=== PATIENT | female | born 1965 | race Caucasian/White ===

== ENCOUNTER → 2016-11-04 | Outpatient (CLI) | payer OTHER ==
--- NOTE | 2016-11-04 13:42 | US ---
EXAMINATION TYPE: US pelvis complete transvag DATE OF EXAM: 11/04/2016 1:13 PM COMPARISON: No previous CLINICAL HISTORY: N95.0 Post menopausal bleeding. Post menopausal bleeding, 2, para 1, aborti on 1. TECHNIQUE: Transvaginal (TV) and Transabdominal (TA) Date of LMP: 2014 EXAM MEASUREMENTS: Uterus: 8.1 x 4.9 x 5.3 cm Endometrial Stripe: 1.2 cm Right Ovary: not seen Left Ovary: not seen Findings: 1. Uterus: Retroverted, heterogeneous with 4.6 x 3.7 x 3.7cm hypoechoic area 2. Endometrium: thickened at 1.2cm with 0.4cm hypoechoic area 3. Right Ovary: not seen due to overlying bowel gas 4. Left Ovary: not seen due to overlying bowel gas 5. Bilateral Adnexa: wnl 6. Posterior cul-de-sac: small amount of free fluid IMPRESSION: 1. Leiomyoma 2. Mildly thickened endometrium with small focal hypoechoic areas seen which may reflect hemorrhagic content. Small polyp is difficult to exclude.
== END | disposition home or self-care (01) ==
LOC: RADUSWWP 12:47
PROVIDERS: ATTEND Family Medicine
DX: D25.9 Leiomyoma of uterus, unspecified (principal); R93.8 Abnormal findings on diagnostic imaging of other specified body structures
CPT/HCPCS: 76830; 76856

== ENCOUNTER 2016-11-25 10:24 | Day surgery (SDC) | payer OTHER ==
[2016-11-20 16:02] VITALS: BMI 32.2
[~2016-11-25 10:24] MED LIST: LACTATED RINGERS 1,000 ML IV SCH; LIDOCAINE 1% 20 ML VIAL (10MG/ML) FOR IV START INTRADERMA PRN
[2016-11-25 11:35] VITALS: RESP 16; TEMP 98.1
[2016-11-25] MEDS ORDERED: LIDOCAINE 1% INJ 10MG/ML (20 ML MDV) ONE (11:59)
[2016-11-25] MEDS ORDERED: PROPOFOL 10 MG/ML 20 ML VIAL IV ONE (11:59)
--- NOTE | 2016-11-25 12:21 | P.PCN ---
Date of Procedure: 11/25/16 Procedure(s) Performed: Brief history: Patient is a pleasant 51-year-old white female, scheduled for an elective upper endoscopy as well as colonoscopy as a part of evaluation of abdominal pain, abdominal bloating and change in bowel habits for the last few months duration. Procedure performed: Esophagogastroduodenoscopy with biopsy Colonoscopy with biopsy Preoperative diagnosis: Abdominal pain, abdominal bloating Change in bowel habits Anesthesia: MAC Procedure: After informed consent was obtained from the patient was brought into the endoscopy unit and IV conscious sedation was administered by anesthesia under continuous monitoring. Initially upper endoscopy was done. The Olympus GF 160 video endoscope was inserted inserted into the mouth and esophagus intubated without any difficulty and was gradually advanced into the stomach and duodenum and carefully examined. The bulb and second part of the duodenum appeared normal. Labs were done from the duodenum to rule out celiac disease. The scope was then withdrawn into the stomach adequately insufflated with air and upon careful examination the antrum had mild gastritis and biopsies were also done from this area. The body, cardia and fundus appeared normal. The scope was then withdrawn into the esophagus. The GE junction was located at 37 cm to the incisors. It appeared regbut there were 2 superficial erosions consistent with LA grade B reflux esophagitis.Rest of the esophagus appeared normal. Patient tolerated the procedure well. At this time the patient continued to remain sedation. Initial digital rectal examination was normal. Olympus CF 160 video colonoscope was then inserted into the rectum and gradually advanced to the cecum without any difficulty. Careful examination was performed as the scope was gradually being withdrawn. The prep was excellent. The cecum, ascending colon, transverse colon, descending colon, sigmoid colon and rectum appeared normal. random biopsies were done from ascending and descending colon to rule out microscopic/ collagenous Colitis. Retroflexion was performed in the rectum and no lesions were noted. Patient tolerated the procedure well. Impression: 1. Upper endoscopy revealed mild antral gastritis and LA grade B reflux esophagitis. 2. Colonoscopy revealed normal-appearing colon from rectum to cecum with no evidence of colitis or colorectal neoplasia. Recommendations: Findings of this examination were discussed with the patient as well as her family. She was advised to follow with the biopsy results. She will be seen in the office in 2 weeks from now.
[2016-11-25 13:08] VITALS: BP 128/74; PULSE 65
== END 2016-11-25 13:49 | disposition home or self-care (01) ==
LOC: ORWHC2ENDO 10:24
PROVIDERS: ATTEND Internal Medicine Gastroenterology
DX: K29.50 Unspecified chronic gastritis without bleeding (principal); K21.0 Gastro-esophageal reflux disease with esophagitis; F41.9 Anxiety disorder, unspecified; Z79.899 Other long term (current) drug therapy; Z88.0 Allergy status to penicillin; Z88.8 Allergy status to other drugs, medicaments and biological substances; Z91.09 Other allergy status, other than to drugs and biological substances
CPT/HCPCS: 81025; 88305; 88342; 45380; 43239; J2001; J2704; 99153

== ENCOUNTER → 2016-12-16 | Outpatient (CLI) | payer OTHER ==
--- NOTE | 2016-12-17 09:28 | MM ---
Reason for exam: screening (asymptomatic). Last mammogram was performed 1 year and 3 months ago. History: Family history of breast cancer in maternal grandmother at age 60. Reduction of the left breast, 1994. Reduction of the right breast, 1994. Took hormonal contraceptives for 8 years beginning at age 31. Physical Findings: A clinical breast exam by your physician is recommended on an annual basis and results should be correlated with mammographic findings. MG Screening Mammo w CAD Bilateral CC and MLO view(s) were taken. Prior study comparison: September 09, 2015, bilateral MG screening mammo w CAD. February 23, 2013, CAD bilateral diagnostic mammogram. There are scattered fibroglandular densities. Finding: There are typically benign round calcifications in the right breast. There is no discrete abnormality. ASSESSMENT: Benign, BI-RAD 2 RECOMMENDATION: Routine screening mammogram of both breasts in 1 year.
== END ==
LOC: RADMAMWWP 10:01
PROVIDERS: ATTEND Family Medicine
DX: Z12.31 Encounter for screening mammogram for malignant neoplasm of breast (principal)

== ENCOUNTER → 2016-12-30 | Outpatient (CLI) | payer OTHER ==
--- NOTE | 2016-12-30 14:47 | CT ---
EXAMINATION TYPE: CT chest wo con DATE OF EXAM: 12/30/2016 2:26 PM COMPARISON: Chest CT February 23, 2013. HISTORY: ILD/Sarcoidosis. Shortness of breath and pain per patient. Raynaud phenomenon without gangre ne per order. CT DLP: 396.8 mGycm. Automated Exposure Control for Dose Reduction was Utilized. TECHNIQUE: CT scan of the thorax is performed without IV contrast. FINDINGS: LUNGS: The lungs are grossly clear, there is no concerning parenchymal mass or nodule identified. No suspicious groundglass opacity consolidation is seen. No significant reticulation or fibrosis is magalys ntified. There is no pleural effusion or pneumothorax seen. The tracheobronchial tree is patent. MEDIASTINUM: Lack of IV contrast is noted to limit evaluation for mediastinal and especially hilar ad enopathy. There are no definitive greater than 1 cm hilar or mediastinal lymph nodes. No cardiomega ly or pericardial effusion is seen. OTHER: Some mild multilevel spurring in the mid to lower thoracic spine is present. Visualized spleen is prominent but not completely imaged. IMPRESSION: No significant acute or chronic pulmonary process.
== END | disposition home or self-care (01) ==
LOC: RADCTMAIN 13:45
PROVIDERS: ATTEND Internal Medicine Rheumatology
DX: I73.00 Raynaud's syndrome without gangrene (principal)
CPT/HCPCS: 71250

== ENCOUNTER → 2017-08-31 | Outpatient (CLI) | payer OTHER ==
--- NOTE | 2017-08-31 23:57 | MR ---
EXAMINATION TYPE: MR lumbar spine wo con DATE OF EXAM: 08/31/2017 COMPARISON: 08/28/2016 HISTORY: Back pain TECHNIQUE: Multiplanar, multisequence images of the lumbar spine were acquired. Lumbar vertebra have normal alignment. There is slight narrowing and decreased signal in the disks at L4-5 and L5-S1. This posterior concentric mild disc herniation at L4-5. There are small posterior di sc bulge at L5-S1. There is no spinal stenosis. Lumbar nerve roots appear normal. The neural foramina are fairly well-maintained. There is no compression fracture. There is no paraspinal mass. Posterior elements are intact. IMPRESSION: Mild spondylosis in the lower lumbar spine. Small posterior disc bulging and herniation at L4-5 and L 5-S1 without significant change compared to old exam. No spinal stenosis. No fracture.
== END | disposition home or self-care (01) ==
LOC: RADMRIMAIN 14:38
PROVIDERS: ATTEND Family Medicine
DX: M51.26 Other intervertebral disc displacement, lumbar region (principal); M51.27 Other intervertebral disc displacement, lumbosacral region; M47.816 Spondylosis without myelopathy or radiculopathy, lumbar region
CPT/HCPCS: 72148

== ENCOUNTER → 2017-09-01 | Outpatient (CLI) | payer SELFPAY | END | disposition home or self-care (01) | LOC: LABWHC1 09:53 | PROVIDERS: ATTEND Orthopaedic Surgery | DX: R78.79 Finding of abnormal level of heavy metals in blood (principal) | CPT/HCPCS: 36415 ==

== ENCOUNTER → 2017-10-05 | Outpatient (CLI) | payer SELFPAY | END | disposition home or self-care (01) | LOC: LABWHC1 10:34 | PROVIDERS: ATTEND Orthopaedic Surgery | DX: L23.0 Allergic contact dermatitis due to metals (principal); R78.79 Finding of abnormal level of heavy metals in blood | CPT/HCPCS: 36415 ==

== ENCOUNTER → 2018-05-16 | Outpatient (CLI) | payer SELFPAY | END | disposition home or self-care (01) | LOC: LABWHC1 13:35 | PROVIDERS: ATTEND Orthopaedic Surgery | DX: M25.561 Pain in right knee (principal) | CPT/HCPCS: 36415; 85652; 86140 ==

== ENCOUNTER → 2018-05-17 | Outpatient (CLI) | payer OTHER | END | disposition home or self-care (01) | LOC: LABWHC1 10:33 | PROVIDERS: ATTEND Internal Medicine | DX: D83.9 Common variable immunodeficiency, unspecified (principal) | CPT/HCPCS: 36415; 82784 ==

== ENCOUNTER → 2018-06-08 | Outpatient (CLI) | payer OTHER ==
--- NOTE | 2018-06-09 08:52 | MM ---
Reason for exam: screening (asymptomatic). Last mammogram was performed 1 year and 6 months ago. History: Family history of breast cancer in maternal grandmother at age 60. Reduction of the left breast, 1994. Reduction of the right breast, 1994. Took hormonal contraceptives for 8 years beginning at age 31. Physical Findings: A clinical breast exam by your physician is recommended on an annual basis and results should be correlated with mammographic findings. MG Screening Mammo w CAD Bilateral CC and MLO view(s) were taken. Prior study comparison: December 16, 2016, bilateral MG screening mammo w CAD. September 09, 2015, bilateral MG screening mammo w CAD. There are scattered fibroglandular densities. There is no discrete abnormality. No significant changes when compared with prior studies. ASSESSMENT: Negative, BI-RAD 1 RECOMMENDATION: Routine screening mammogram of both breasts in 1 year.
== END | disposition home or self-care (01) ==
LOC: RADMAMWWP 09:18
PROVIDERS: ATTEND Obstetrics & Gynecology
DX: Z12.31 Encounter for screening mammogram for malignant neoplasm of breast (principal)
CPT/HCPCS: 77067

== ENCOUNTER → 2018-07-05 | Outpatient (CLI) | payer OTHER ==
--- NOTE | 2018-07-05 16:26 | CT ---
EXAMINATION TYPE: CT sinus wo con DATE OF EXAM: 07/05/2018 COMPARISON: CT facial bones January 29, 2011 HISTORY: Common variable immunodeficiency, unspecified CT DLP: 512 mGycm. Automated Exposure Control for Dose Reduction was Utilized. TECHNIQUE: CT scan of the sinuses is performed without contrast, axial images are obtained, coronal r eformatted images are also reviewed. FINDINGS: The paranasal sinuses including the frontal, ethmoid, sphenoid, and maxillary sinuses bila terally are well-aerated without abnormal opacification. The surgically treated ostiomeatal complex is patent bilaterally on the coronal images. Visualized portion of mastoid air cells show no abnormal opacification. The globes are intact bilate rally. Visualized portion of brain parenchyma shows mild diffuse age-related cerebral atrophy. IMPRESSION: The paranasal sinuses are clear and the surgically treated ostiomeatal complex is patent bilaterally. No significant change from 2011 CT.
== END | disposition home or self-care (01) ==
LOC: RADCTMAIN 15:57
PROVIDERS: ATTEND Internal Medicine
DX: J34.89 Other specified disorders of nose and nasal sinuses (principal); Z98.890 Other specified postprocedural states
CPT/HCPCS: 70486

== ENCOUNTER → 2018-09-05 | Outpatient (CLI) | payer OTHER ==
--- NOTE | 2018-09-05 23:32 | MR ---
EXAMINATION TYPE: MR knee LT wo/w con DATE OF EXAM: 09/05/2018 COMPARISON: 09/09/2012 HISTORY: Knee pain TECHNIQUE: Multiplanar, multisequence images of the left knee is performed with 7.5 mL intravenous ga dolinium contrast. FINDINGS: There is a knee joint effusion. There is previous reconstructive surgery of the anterior cruciate lig ament that appears intact. There are linear defects in the distal femur and the proximal tibia. The l ateral meniscus appears intact. There is mild thinning of the medial meniscus. The collateral ligamen ts appear intact. I see no focal bone destruction. The infrapatellar tendon appears intact. The supra patellar tendon shows areas of increased signal. I see no pathologic enhancement. There is no evidenc e of a fracture. IMPRESSION: Previous ACL reconstructive surgery unchanged. Increased signal in the suprapatellar tendon adjacent to the patella consistent with partial tears that is a change compared to last exam. No evidence of meniscal tear. Minor degenerative thinning of the medial meniscus.
== END | disposition home or self-care (01) ==
LOC: RADMRIMAIN 17:01
PROVIDERS: ATTEND Family Medicine
DX: R93.7 Abnormal findings on diagnostic imaging of other parts of musculoskeletal system (principal); M25.562 Pain in left knee; Z98.890 Other specified postprocedural states
CPT/HCPCS: 73723; A9585

== ENCOUNTER → 2018-09-05 | Outpatient (CLI) | payer OTHER ==
[2018-09-05 08:45] LABS: Basophils # (A) 0.1 k/uL (0-0.2); Basophils % (A) 1 %; Eosinophils # (A) 0.3 k/uL (0-0.7); Eosinophils % (A) 5 %; HCT 42.9 % (34.0-46.0); HGB 14.8 gm/dL (11.4-16.0); Lymphocytes # (A) 2.3 k/uL (1.0-4.8); Lymphocytes % (A) 43 %; MCH 28.6 pg (25.0-35.0); MCHC 34.6 g/dL (31.0-37.0); MCV 82.6 fL (80.0-100.0); Mean Platelet Volume 6.4; Monocytes # (A) 0.3 k/uL (0-1.0); Monocytes % (A) 5 %; Neutrophils # (A) 2.3 k/uL (1.3-7.7); Neutrophils % (A) 44 %; Platelet Count 240 k/uL (150-450); RBC 5.19 m/uL (3.80-5.40); RDW 13.7 % (11.5-15.5); WBC 5.3 k/uL (3.8-10.6)
[2018-09-05 12:59] LABS: Anion Gap 7 mmol/L; Blood Urea Nitrogen 12 mg/dL (7-17); Calcium 9.7 mg/dL (8.4-10.2); Carbon Dioxide 28 mmol/L (22-30); Chloride 106 mmol/L (98-107); Cholesterol 202 mg/dL (<200); Glucose 107 mg/dL (74-99); HDL Cholesterol 40 mg/dL (40-60); LDL Cholesterol,Calculated 138 mg/dL (0-99); Potassium 4.6 mmol/L (3.5-5.1); Sodium 141 mmol/L (137-145); Triglycerides 119 mg/dL (<150)
== END ==
LOC: LABWHC1 08:13
PROVIDERS: ATTEND Family Medicine
DX: Z00.00 Encounter for general adult medical examination without abnormal findings (principal)
CPT/HCPCS: 36415; 80048; 80061; 85025

== ENCOUNTER → 2018-11-15 | Outpatient (CLI) | payer OTHER | END | disposition home or self-care (01) | LOC: LABWHC1 14:20 | PROVIDERS: ATTEND Internal Medicine | DX: D53.9 Nutritional anemia, unspecified (principal) | CPT/HCPCS: 36415; 82784 ==

== ENCOUNTER → 2019-11-01 | Outpatient (CLI) | payer OTHER ==
--- NOTE | 2019-11-01 09:42 | US ---
EXAMINATION TYPE: US gallbladder DATE OF EXAM: 11/01/2019 COMPARISON: 09/18/2016 CLINICAL HISTORY: R10.11 RUQ PAIN. RUQ pain ongoing for years EXAM MEASUREMENTS: Liver Length: 17.0cm Gallbladder Wall: 0.2cm CBD: 0.3cm Right Kidney: 9.5 x 4.7 x 4.9cm difficult to image due to habitus and bowel gas Pancreas: wnl Liver: difficult to penetrate and coarse Gallbladder: wnl Evidence for sonographic Stevens's sign: no CBD: wnl Right Kidney: wnl IMPRESSION: 1. Liver is somewhat coarsened in echo pattern which can be seen with hepatic steatosis, hepatocellul ar disease or hepatitis. Correlate clinically.
== END | disposition home or self-care (01) ==
LOC: RADUSWWP 08:46
PROVIDERS: ATTEND Internal Medicine Gastroenterology
DX: R93.2 Abnormal findings on diagnostic imaging of liver and biliary tract (principal); R10.11 Right upper quadrant pain
CPT/HCPCS: 76705

== ENCOUNTER 2020-01-08 15:46 | Emergency (ER) | payer OTHER ==
[2020-01-08 15:57] VITALS: RESP 18
--- NOTE | 2020-01-08 16:25 | XR ---
EXAMINATION TYPE: XR chest 2V DATE OF EXAM: 01/08/2020 COMPARISON: 11/19/2010 INDICATION: Cough asthma TECHNIQUE: Frontal and lateral views of the chest are obtained. FINDINGS: The heart size is normal. The pulmonary vasculature is normal. The lungs are clear. IMPRESSION: 1. No acute pulmonary process.
--- NOTE | 2020-01-08 16:41 | ED ---
General Adult HPI - General Chief complaint: Upper Respiratory Infection Stated complaint: Shortness of Breath Time Seen by Provider: 01/08/20 16:00 Source: patient Mode of arrival: ambulatory Limitations: no limitations - History of Present Illness Initial comments: Patient is a 54-year-old female with history of common periorbital variable immunodeficiency syndrome presenting to the emergency department with a chief complaint of cough and shortness of breath. States the symptoms have been ongoing for about since Wednesday. Patient reports a dry cough but denies any upper respiratory symptoms. All reports an occasional sore throat after coughi ng fits. Patient states she spoke with her complaint specialist who started the patient on a tapered steroid pack. Patient states she is also been using nebulizer treatments at home which helped improve the wheezing. Patient denies any fevers. Denies taking any medication to alleviate the symptoms. Denies chest pain back pain abdominal pain nausea vomiting diarrhea, headaches, blurry vision, one-sided weakness or paresthesias. - Related Data Home Medications Medication Instructions Recorded Confirmed Clindamycin [Cleocin] 150 mg PO TID 11/20/16 11/25/16 LORazepam [Ativan] 0.5 - 1 mg PO BID PRN 11/20/16 11/25/16 Liraglutide [Saxenda] 1.8 mg SQ DAILY 11/20/16 11/25/16 Metoprolol Succinate [Toprol XL] 50 mg PO HS 11/20/16 11/25/16 Omeprazole 40 mg PO DAILY 11/20/16 11/25/16 Allergies Allergy/AdvReac Type Severity Reaction Status Date / Time erythromycin base Allergy Rash/Hives Verified 01/08/20 15:48 gabapentin [From Neurontin] Allergy BLURRED Verified 01/08/20 15:48 VISION hyoscyamine [From Levbid] Allergy BLURRED Verified 01/08/20 15:48 VISION immune globulin,gamma (IgG) Allergy Anaphylaxis Verified 01/08/20 15:48 human [From Carimune] paroxetine [From Paxil] Allergy Confusion Verified 01/08/20 15:48 Penicillins Allergy Rash/Hives Verified 01/08/20 15:48 pregabalin [From Lyrica] Allergy BLURRED Verified 01/08/20 15:48 VISION sumatriptan [From Imitrex] Allergy SEVERE Verified 01/08/20 15:48 PRESSURE IN HEAD, BURNING PAIN vancomycin Allergy Rash/Hives Verified 01/08/20 15:48 Review of Systems ROS Statement: Those systems with pertinent positive or pertinent negative responses have been documented in the HPI. ROS Other: All systems not noted in ROS Statement are negative. 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 Date of last positivie culture/infection: 2010 MDRO Source:: sinus Past Surgical History: No Surgical Hx Reported, Breast Surgery, Joint Replacement, Orthopedic Surgery Additional Past Surgical History / Comment(s): abdominlaplasty, R knee L ACL, L shoulder Past Psychological History: Anxiety, PTSD Smoking Status: Never smoker Past Alcohol Use History: Rare Past Drug Use History: None Reported General Exam Limitations: no limitations General appearance: alert, in no apparent distress Head exam: Present: atraumatic, normocephalic, normal inspection Eye exam: Present: normal appearance, PERRL, EOMI Pupils: Present: normal accommodation ENT exam: Present: normal exam, mucous membranes moist Neck exam: Present: normal inspection, full ROM Respiratory exam: Present: normal lung sounds bilaterally. Absent: respiratory distress, wheezes, rales, rhonchi, stridor Cardiovascular Exam: Present: regular rate, normal rhythm, normal heart sounds Extremities exam: Present: normal inspection, normal capillary refill Back exam: Present: normal inspection, full ROM Neurological exam: Present: alert, oriented X3 Psychiatric exam: Present: normal affect, normal mood Skin exam: Present: warm, dry, intact, normal color Course Vital Signs 01/08/20 01/08/20 15:49 18:05 Temperature 98.2 F Pulse Rate 104 H 88 Respiratory 18 18 Rate Blood Pressure 161/82 119/74 O2 Sat by Pulse 99 97 Oximetry Medical Decision Making - Medical Decision Making Patient is a 54-year-old female presenting to the emergency department with chief complaint of shortness of breath and cough. Physical examination reveals no respiratory distress. No wheezing or rhonchi appreciated. Patient does appear to be slightly clammy. Chest x-ray is unremarkable. CBC CMP are unremarkable. Blood cultures pending. Lactic is 2.1 initially. Patient did report decreased liquid intake since yesterday. Patient was given 1 L bolus fluids. Reevaluation patient reports feeling symptomatically better. Repeat lactate is 2.1. I suspect this was only elevated due to poor liquid intake. Had a lengthy discussion with patient regarding limited Covid testing due to shortage. Only admitted patients are tested. Patient advised to follow-up with her primary care. Return parameters were thoroughly discussed with patient who was understanding and agreeable. Case discussed with physician. - Lab Data Result diagrams: 01/08/20 16:15 01/08/20 16:15 Lab Results 01/08/20 01/08/20 01/08/20 Range/Units 16:15 16:15 16:15 WBC 8.3 (3.8-10.6) k/uL RBC 5.69 H (3.80-5.40) m/uL Hgb 15.6 (11.4-16.0) gm/dL Hct 45.8 (34.0-46.0) % MCV 80.5 (80.0-100.0) fL MCH 27.4 (25.0-35.0) pg MCHC 34.0 (31.0-37.0) g/dL RDW 13.7 (11.5-15.5) % Plt Count 345 (150-450) k/uL Neutrophils % 82 % Lymphocytes % 15 % Monocytes % 2 % Eosinophils % 0 % Basophils % 0 % Neutrophils # 6.8 (1.3-7.7) k/uL Lymphocytes # 1.2 (1.0-4.8) k/uL Monocytes # 0.2 (0-1.0) k/uL Eosinophils # 0.0 (0-0.7) k/uL Basophils # 0.0 (0-0.2) k/uL Sodium 138 (137-145) mmol/L Potassium 4.2 (3.5-5.1) mmol/L Chloride 103 (98-107) mmol/L Carbon Dioxide 23 (22-30) mmol/L Anion Gap 12 mmol/L BUN 11 (7-17) mg/dL Creatinine 0.74 (0.52-1.04) mg/dL Est GFR (CKD-EPI)AfAm >90 (>60 ml/min/1.73 sqM) Est GFR (CKD-EPI)NonAf >90 (>60 ml/min/1.73 sqM) Glucose 139 H (74-99) mg/dL Plasma Lactic Acid Felipe 3.1 H* (0.7-2.0) mmol/L Calcium 10.0 (8.4-10.2) mg/dL Total Bilirubin 0.4 (0.2-1.3) mg/dL AST 18 (14-36) U/L ALT 17 (4-34) U/L Alkaline Phosphatase 92 (38-126) U/L Total Protein 7.7 (6.3-8.2) g/dL Albumin 4.8 (3.5-5.0) g/dL 01/07/ Range/Units 19:15 WBC (3.8-10.6) k/uL RBC (3.80-5.40) m/uL Hgb (11.4-16.0) gm/dL Hct (34.0-46.0) % MCV (80.0-100.0) fL MCH (25.0-35.0) pg MCHC (31.0-37.0) g/dL RDW (11.5-15.5) % Plt Count (150-450) k/uL Neutrophils % % Lymphocytes % % Monocytes % % Eosinophils % % Basophils % % Neutrophils # (1.3-7.7) k/uL Lymphocytes # (1.0-4.8) k/uL Monocytes # (0-1.0) k/uL Eosinophils # (0-0.7) k/uL Basophils # (0-0.2) k/uL Sodium (137-145) mmol/L Potassium (3.5-5.1) mmol/L Chloride (98-107) mmol/L Carbon Dioxide (22-30) mmol/L Anion Gap mmol/L BUN (7-17) mg/dL Creatinine (0.52-1.04) mg/dL Est GFR (CKD-EPI)AfAm (>60 ml/min/1.73 sqM) Est GFR (CKD-EPI)NonAf (>60 ml/min/1.73 sqM) Glucose (74-99) mg/dL Plasma Lactic Acid Felipe 2.1 H* (0.7-2.0) mmol/L Calcium (8.4-10.2) mg/dL Total Bilirubin (0.2-1.3) mg/dL AST (14-36) U/L ALT (4-34) U/L Alkaline Phosphatase (38-126) U/L Total Protein (6.3-8.2) g/dL Albumin (3.5-5.0) g/dL Disposition Clinical Impression: Cough, Bronchitis Disposition: HOME SELF-CARE Condition: Stable Instructions (If sedation given, give patient instructions): Acute Bronchitis (ED) Additional Instructions: Follow up with primary care. return to emergency department if symptoms worsen. Is patient prescribed a controlled substance at d/c from ED?: No Referrals: Oc Wright DO [Primary Care Provider] - 1-2 days Time of Disposition: 20:02
[2020-01-08 17:12] LABS: Basophils % (A) 0 %; Eosinophils % (A) 0 %; HCT 45.8 % (34.0-46.0); HGB 15.6 gm/dL (11.4-16.0); Lymphocytes # (A) 1.2 k/uL (1.0-4.8); Lymphocytes % (A) 15 %; MCH 27.4 pg (25.0-35.0); MCV 80.5 fL (80.0-100.0); Mean Platelet Volume 6.7; Monocytes # (A) 0.2 k/uL (0-1.0); Monocytes % (A) 2 %; Neutrophils # (A) 6.8 k/uL (1.3-7.7); Neutrophils % (A) 82 %; Platelet Count 345 k/uL (150-450); RBC 5.69 m/uL (3.80-5.40); RDW 13.7 % (11.5-15.5); WBC 8.3 k/uL (3.8-10.6)
[2020-01-08 17:20] LABS: ALT 17 U/L (4-34); AST 18 U/L (14-36); African American GFR (CKD) >90 (>60 ml/min/1.73 sqM); Albumin 4.8 g/dL (3.5-5.0); Alkaline Phosphatase 92 U/L (38-126); Anion Gap 12 mmol/L; Blood Urea Nitrogen 11 mg/dL (7-17); Carbon Dioxide 23 mmol/L (22-30); Chloride 103 mmol/L (98-107); Glucose 139 mg/dL (74-99); Non-African American GFR(CKD) >90 (>60 ml/min/1.73 sqM); Potassium 4.2 mmol/L (3.5-5.1); Sodium 138 mmol/L (137-145); Total Bilirubin 0.4 mg/dL (0.2-1.3); Total Protein 7.7 g/dL (6.3-8.2)
[2020-01-08] MEDS ORDERED: SODIUM CHLORIDE 0.9% 1,000 ML IV STA (17:50)
[2020-01-08 20:27] VITALS: BP 132/86; PULSE 72; TEMP 97.8
== END 2020-01-08 20:26 | disposition home or self-care (01) ==
LOC: EC 15:46
DX: J40 Bronchitis, not specified as acute or chronic (principal); M19.90 Unspecified osteoarthritis, unspecified site; D83.9 Common variable immunodeficiency, unspecified; Z88.0 Allergy status to penicillin; Z88.8 Allergy status to other drugs, medicaments and biological substances; Z88.7 Allergy status to serum and vaccine; Z79.84 Long term (current) use of oral hypoglycemic drugs; Z79.899 Other long term (current) drug therapy; Z86.14 Personal history of Methicillin resistant Staphylococcus aureus infection; Z87.19 Personal history of other diseases of the digestive system; Z96.60 Presence of unspecified orthopedic joint implant
CPT/HCPCS: 36415; 71046; 80053; 83605; 85025; 87040; 87077; 87186; 96360; 99285

== ENCOUNTER → 2020-06-05 | Outpatient (CLI) | payer OTHER ==
[2020-06-05 07:56] VITALS: BP 159/92; PULSE 66; RESP 18; TEMP 98.2
--- NOTE | 2020-06-05 12:25 | P.PAINCN ---
History of Present Illness - Reason for Consult Consult date: 06/05/20 - History of Present Illness This is 54 years old female, who is complaining of severe left thumb pain and redness, and swelling, started a few days after she had left hand surgery(surgery was done in 04/10/2020 ) the pain is constant and increased with any movement of her left thumb, she denies any discharge, she denies any fever , any movement of her left thumb associated with severe pain, she tried multiple pain medication, without any significant benefit, and she had side effects from gabapentin to Lyrica, and amitriptyline, she tried occupational therapy without any benefit Past Medical History Past Medical History: Asthma, GERD/Reflux, GI Bleed, Hypertension, Osteoarthritis (OA) Additional Past Medical History / Comment(s): common variable immune deficiency disorder, Reynaud's, RSD left thumb, IBS, inflam. colitis, medulary sponge kidney disease, small fiber neuropathy hands, feet & ankles History of Any Multi-Drug Resistant Organisms: MRSA Year Discovered:: 2010 MDRO Source:: sinus Past Surgical History: Bladder Surgery, Breast Surgery, Joint Replacement, Orthopedic Surgery Additional Past Surgical History / Comment(s): abdominoplasty, L ACL, L shoulder , CMCR arthroplasty left hand April 2020, right knee replaced, breast reduction, bladder suspension, stone removed from sublingual gland, sinus surg. Past Anesthesia/Blood Transfusion Reactions: No Reported Reaction Additional Past Anesthesia/Blood Transfusion Reaction / Comm: one time episode of trouble arousing after colonoscopy Past Psychological History: Anxiety, PTSD Smoking Status: Never smoker Past Alcohol Use History: Occasional Past Drug Use History: None Reported Medications and Allergies Home Medications Medication Instructions Recorded Confirmed Type LORazepam [Ativan] 0.5 - 1 mg PO BID PRN 11/20/16 05/30/20 History Metoprolol Succinate [Toprol XL] 50 mg PO HS 11/20/16 05/30/20 History Omeprazole 40 mg PO DAILY 11/20/16 05/30/20 History Arnica Cream TOPICAL DIRECTED PRN 05/30/20 History HYDROcodone/APAP 10-325MG [[place] 0.5 - 1 tab PO Q6HR PRN 05/30/20 05/30/20 History 10-325] Hizentra Infusion IV Q14D 05/30/20 History Immuneti 1 tab PO DAILY 05/30/20 05/30/20 History Naproxen Sodium [Aleve] 220 mg PO BID PRN 05/30/20 05/30/20 History Allergies Allergy/AdvReac Type Severity Reaction Status Date / Time adhesive Allergy blistered Verified 06/05/20 07:52 skin, rash erythromycin base Allergy Rash/Hives Verified 06/05/20 07:52 gabapentin [From Neurontin] Allergy BLURRED Verified 06/05/20 07:52 VISION hyoscyamine [From Levbid] Allergy BLURRED Verified 06/05/20 07:52 VISION immune globulin,gamma (IgG) Allergy Anaphylaxis Verified 06/05/20 07:52 human [From Carimune] paroxetine [From Paxil] Allergy Confusion Verified 06/05/20 07:52 Penicillins Allergy Rash/Hives Verified 06/05/20 07:52 pregabalin [From Lyrica] Allergy BLURRED Verified 06/05/20 07:52 VISION sumatriptan [From Imitrex] Allergy SEVERE Verified 06/05/20 07:52 PRESSURE IN HEAD, BURNING PAIN vancomycin Allergy Rash/Hives Verified 06/05/20 07:52 Physical Exam Vitals: Vital Signs Temp Pulse Resp BP 06/05/20 07:53 98.2 F 66 18 159/92 Physical Examinations : -Constitutiona : Cooperative , not in acute distress . -HEENT : nech : supple , no Lymphadenopathy , normal thyroid size . : eyes : no ptosis , no icterus, no photophobia . - neurologic : Cranial nerve II to XII intact , no focal neurological deffecit . -psychatric : alert , oriented X 3 , appropriate affect , intact judgment and insight . -Lymphatic : no Lymphadenopathy . - musculoskeltal : Upper extremity= allodynia at the dorsum aspect of the left thumb, mild swelling Passive and active movement of the left thumb associated with severe pain. Incision at the wrist, the base of the left thumb, he well with no sign of infection, no discharge Lumber spine moter stegnth lower extremities ,thigh and legs 5/5 Right side , 5/5 Left side Assessment and Plan Plan: Assessment and plan=1-complex regional pain syndrome type I left upper extremity . We will order bone scan. Patient could benefit from Trileptal 300 mg daily at bedtime increased later on for twice a day. Patient could benefit from amitriptyline 10 mg daily at bedtime. Patient will follow up in the pain clinic in 2 weeks, by that time we will have the result of the bone scan and we could schedule patient to have left-sided stellate ganglion block, and patient should continue occupational therapy, physical therapy Time with Patient: Greater than 30 PQRS Measure Charge Sheet Measure #130: Documentation of Current Meds in Medical Chart: Patient's medications documented in chart Measure #226: Tobacco Use: Screen & Cessation Intervention: Pt not a tobacco user Measure #111: Pneumonia Vaccination: Pneumococcal vaccine NOT administered or previously given Measure #47: Advance Care Plan: Advance care planning discussed & documented, pt chose/unable to give Measure #412: Opioid Treatment Agreement: No documentation of signed opioid treatment agreement Measure #408: Opioid Therapy Follow-up Evaluation: Patient had NO f/u eval minimum every 3 months during opioid therapy Measure #317: Preventitive Care & Scrn High Bld Press & F/U: Pre-hypertensive or hypertensive BP documented, pt will f/u with PCP Measure #128: Body Mass Index (BMI) Screening & Follow-up: BMI documented ABOVE normal parameters - f/u documented Measure #131: Pain Assessment & Follow-up: Pain positive & plan documented, Follow-up scheduled Measure #431: Unhealthy Alcohol Use Preventative Care & Scrn: Patient not identified as an unhealthy alcohol user PQRS Narrative: Smoking Status Never smoker Blood Pressure 159/92 Pain Intensity [Left Hand] 4 Pain Intensity [Left] 4 Scale Used Numeric (1 - 10) Hx Alcohol Use (MH) Yes Home Medications: Ambulatory Orders LORazepam [Ativan] 0.5 - 1 mg PO BID PRN 11/20/16 Metoprolol Succinate [Toprol XL] 50 mg PO HS 11/20/16 Omeprazole 40 mg PO DAILY 11/20/16 Arnica Cream TOPICAL DIRECTED PRN 05/30/20 HYDROcodone/APAP 10-325MG [[place] 10-325] 0.5 - 1 tab PO Q6HR PRN 05/30/20 Hizentra Infusion IV Q14D 05/30/20 Immuneti 1 tab PO DAILY 05/30/20 Naproxen Sodium [Aleve] 220 mg PO BID PRN 05/30/20
== END | disposition home or self-care (01) ==
LOC: PNWHC3 07:34
PROVIDERS: ATTEND Specialist
DX: G90.512 Complex regional pain syndrome I of left upper limb (principal); K21.9 Gastro-esophageal reflux disease without esophagitis; J45.909 Unspecified asthma, uncomplicated; I10 Essential (primary) hypertension; M19.90 Unspecified osteoarthritis, unspecified site; Z79.891 Long term (current) use of opiate analgesic; Z79.899 Other long term (current) drug therapy; Z88.1 Allergy status to other antibiotic agents; Z88.0 Allergy status to penicillin; Z88.8 Allergy status to other drugs, medicaments and biological substances
CPT/HCPCS: 99211

== ENCOUNTER → 2020-06-21 | Outpatient (CLI) | payer OTHER ==
--- NOTE | 2020-06-24 09:58 | MM ---
Reason for exam: screening (asymptomatic). Last mammogram was performed 2 years ago. History: Patient is postmenopausal. Family history of breast cancer in maternal grandmother at age 60. Reduction of the left breast, 1994. Reduction of the right breast, 1994. Took hormonal contraceptives for 8 years beginning at age 31. Physical Findings: A clinical breast exam by your physician is recommended on an annual basis and results should be correlated with mammographic findings. MG Screening Mammo w CAD Bilateral CC and MLO view(s) were taken. Prior study comparison: June 08, 2018, bilateral MG screening mammo w CAD. December 16, 2016, bilateral MG screening mammo w CAD. There are scattered fibroglandular densities. There is no discrete abnormality. No significant changes when compared with prior studies. ASSESSMENT: Negative, BI-RAD 1 RECOMMENDATION: Routine screening mammogram of both breasts in 1 year.
== END | disposition home or self-care (01) ==
LOC: RADMAMWWP 13:26
PROVIDERS: ATTEND Family Medicine
DX: Z12.31 Encounter for screening mammogram for malignant neoplasm of breast (principal)
CPT/HCPCS: 77067

== ENCOUNTER → 2020-06-26 | Outpatient (CLI) | payer OTHER ==
--- NOTE | 2020-06-26 14:25 | NM ---
EXAMINATION TYPE: NM bone 3 phase DATE OF EXAM: 06/26/2020 COMPARISON: NONE HISTORY: Pain Triple phase bone scintigraphy was performed following the injection of 22.5 mCi Tc 99m MDP. Immedia te images and 3 hours post injection images acquired. FINDINGS: Uptake in the vascular structures of the right arm is related to the site of injection. This limits a ssessment of the vascular supply. There appears to be increased soft tissue uptake involving the region of the scaphoid. Delayed images demonstrate increased uptake in the region of the distal radius or scaphoid bone. IMPRESSION: 1. Abnormal uptake in the region of the scaphoid or trapezium bone with soft tissue uptake.. Recommen d x-ray correlation to assess for fracture versus osteomyelitis severe arthritis or intraosseous lesi on.
== END | disposition home or self-care (01) ==
LOC: RADNMMAIN 09:55
PROVIDERS: ATTEND Specialist
DX: R94.8 Abnormal results of function studies of other organs and systems (principal); G90.529 Complex regional pain syndrome I of unspecified lower limb
CPT/HCPCS: 78315; A9503

== ENCOUNTER → 2020-07-17 | Outpatient (CLI) | payer OTHER ==
[2020-07-17 10:02] VITALS: BP 143/92; PULSE 78; RESP 18; TEMP 98.2
--- NOTE | 2020-07-17 10:29 | P.PN ---
Subjective Progress Note Date: 07/17/20 This is a follow-up visit for this 54 years old female with a history of left thumb pain, and swelling, started after left thumb arthroplasty, patient diagnosed with complex regional pain syndrome type 1, left upper extremity, patient had the bone scan , and it showed that she had increased soft tissue upt sonya in the area Patient denies any fever or night sweats she denies any discharge from the left stump area, she continued to have swelling and redness and pain with the movement of the joint (left thumb ) Objective - Vital Signs Vital signs: Vital Signs Temp 98.2 F 07/17/20 09:56 Pulse 78 07/17/20 09:56 Resp 18 07/17/20 09:56 BP 143/92 07/17/20 09:56 Pulse Ox 97 07/17/20 09:56 Intake & Output 07/16/20 07/17/20 07/17/20 18:59 06:59 18:59 Weight 88.451 kg - Exam -Constitutiona : Cooperative , not in acute distress . -HEENT : nech : supple , no Lymphadenopathy , normal thyroid size . : eyes : no ptosis , no icterus, no photophobia . - neurologic : Cranial nerve II to XII intact , no focal neurological deffecit . -psychatric : alert , oriented X 3 , appropriate affect , intact judgment and insight . -Lymphatic : no Lymphadenopathy . - musculoskeltal : Upper extremity= allodynia at the dorsum aspect of the left thumb, mild swelling Passive and active movement of the left thumb associated with severe pain. Incision at the wrist, the base of the left thumb, he well with no sign of infection, no discharge Lumber spine moter stegnth lower extremities ,thigh and legs 5/5 Right side , 5/5 Left side Assessment and Plan Plan: Assessment and plan=1-complex regional pain syndrome type I left upper extremity . Patient could benefit from stellate ganglion block left side. Description had side effects from amitriptyline, and she stopped taking Trileptal. - PQRS measures = - Patient's medications are documented in the chart. -Tobacco use is negative and counseling.Given. -Patient's has not received pneumococcal vaccine. -Advanced care planning discussed, patient not eligible. -Opiate contract signed. -Pain positive and follow-up visit/procedure is scheduled. -Patient's blood pressure measured [143/92 ] , and documented in the record ,and patient will follow up with the primary care. -Patient's weight was measured and body mass index above the normal limits and counseling was done. and patient instructed to follow-up with the primary care physician. -Patient was not identified as an unhealthy alcohol user Time with Patient: Less than 30
== END | disposition home or self-care (01) ==
LOC: PNWHC3 09:40
PROVIDERS: ATTEND Specialist
DX: G90.512 Complex regional pain syndrome I of left upper limb (principal)
CPT/HCPCS: 99211

== ENCOUNTER → 2020-07-24 | Outpatient (CLI) | payer OTHER ==
--- NOTE | 2020-07-25 04:46 | MR ---
EXAMINATION TYPE: MR knee LT wo con DATE OF EXAM: 07/24/2020 COMPARISON: 09/05/2018 HISTORY: Medial meniscus injury left knee There is deformity of the anterior cruciate ligament related to reconstructive surgery. The ligament appears intact. The posterior cruciate ligament is intact. The medial and lateral menisci show fairly normal signal pattern. There is no evidence of meniscal tear. There is a mild knee joint effusion. P atella tendon is intact. The collateral ligaments are intact. I see no bony destructive process. Ther e is no evidence of a soft tissue mass. IMPRESSION: Previous reconstructive surgery. Small knee joint effusion. Knee overall not significantly different than old exam. No evidence of meniscal tear. There is degenerative thinning of the medial meniscus unchanged compare d to old exam.
== END | disposition home or self-care (01) ==
LOC: RADMRIMAIN 18:27
PROVIDERS: ATTEND Orthopaedic Surgery
DX: M23.304 Other meniscus derangements, unspecified medial meniscus, left knee (principal); Z98.890 Other specified postprocedural states

== ENCOUNTER → 2020-07-24 | Outpatient (CLI) | payer OTHER ==
--- NOTE | 2020-07-25 04:52 | MR ---
EXAMINATION TYPE: MR foot LT wo con DATE OF EXAM: 07/24/2020 COMPARISON: None HISTORY: Lateral left foot pain Multiplanar multiecho imaging of the left foot was performed without contrast. There is increased signal in the soft tissues around the distal fifth metatarsal on the T2 images. Th ere is no evidence of a soft tissue mass. I see no bony destructive process. The metatarsals appear i ntact without evidence of a fracture. The toes appear intact. Plantar fascia appears intact. Achilles tendon appears normal. The medial and lateral flexor tendons appear intact. There is no pathologic f luid collection. IMPRESSION: Mild soft tissue edema around the distal fifth metatarsal on the dorsum of the foot of uncertain sign ificance. No fracture seen. No evidence of a discrete soft tissue mass.
== END | disposition home or self-care (01) ==
LOC: RADMRIMAIN 18:33
PROVIDERS: ATTEND Family Medicine
DX: M79.89 Other specified soft tissue disorders (principal)

== ENCOUNTER → 2020-08-09 | Outpatient (CLI) | payer OTHER ==
[2020-08-09 08:21] LABS: Basophils % (A) 1 %; Eosinophils # (A) 0.1 k/uL (0-0.7); Eosinophils % (A) 3 %; HCT 43.5 % (34.0-46.0); HGB 14.3 gm/dL (11.4-16.0); Lymphocytes # (A) 2.1 k/uL (1.0-4.8); Lymphocytes % (A) 40 %; MCH 28.2 pg (25.0-35.0); MCV 85.6 fL (80.0-100.0); Mean Platelet Volume 6.6; Monocytes # (A) 0.3 k/uL (0-1.0); Monocytes % (A) 5 %; Neutrophils # (A) 2.6 k/uL (1.3-7.7); Neutrophils % (A) 49 %; Platelet Count 264 k/uL (150-450); RBC 5.08 m/uL (3.80-5.40); RDW 13.4 % (11.5-15.5); WBC 5.2 k/uL (3.8-10.6)
[2020-08-09 11:24] LABS: African American GFR (CKD) 85.2 (60.0-200.0); Anion Gap 6.7 mmol/L (4.00-12.00); BUN/Creat Ratio 17.78 Ratio (12.00-20.00); Calcium 9.3 mg/dL (8.7-10.3); Carbon Dioxide 28.3 mmol/L (21.6-31.8); Non-African American GFR(CKD) 73.5 (60.0-200.0); Potassium 4.5 mmol/L (3.5-5.5)
[2020-08-09 11:36] LABS: Estradiol 14.4 pg/mL; Follicle Stimulating Hormone 60.6 mIU/mL; Luteinizing Hormone 29.1 mIU/mL; Prolactin 6.1 ng/mL (2.8-29.2); T4, Free (Free Thyroxine) 1.2 ng/dL (0.80-1.80)
[2020-08-09 16:11] LABS: Hemoglobin A1C 5.3 % (4.0-6.0)
== END | disposition home or self-care (01) ==
LOC: LABWHC1 07:51
PROVIDERS: ATTEND Family Medicine
DX: R53.83 Other fatigue (principal)
CPT/HCPCS: 36415; 80048; 82533; 82670; 83001; 83002; 83036; 84146; 84439; 84443; 84482; 85025

== ENCOUNTER 2020-08-20 12:08 | Day surgery (SDC) | payer OTHER ==
[2020-08-19 12:20] VITALS: BMI 34.7
[~2020-08-20 12:08] MED LIST changes: -LIDOCAINE 1% 20 ML VIAL (10MG/ML) FOR IV START INTRADERMA PRN
[2020-08-20 12:28] VITALS: TEMP 96.8
[2020-08-20] MEDS ORDERED: methylPREDNISolone ACETATE 40 MG/ML 1 ML VIAL ONE (13:01)
[2020-08-20] MEDS ORDERED: ROPIVACAINE 5MG/ML 20ML VIAL ONE (13:01)
--- NOTE | 2020-08-20 13:32 | P.PCN ---
Date of Procedure: 08/20/20 Procedure(s) Performed: Procedure= left sided stellate ganglion block under ultrasound guidance Preoperative diagnosis= 1-complex regional pain syndrome type I: Left upper extremity Postoperative diagnosis=Same as preop Diagnosis . Complication = none Condition= stable Anesthesia= local anesthetic with lidocaine 1% 3 mL Indication for the procedure= patient complaining of left hand pain and numbness and tingling she's diagnosed with complex regional pain syndrome and she is here today to have left-sided stellate ganglion block. Description of the procedure= procedure risk and benefits discussed with the patient, including but not limited, risk of infection and bleeding, and ALLERGIC reaction to the medication and not complete pain relief and patient agreed with the preceding patient taken to the operating room, placed in supine position or standard monitors applied to the patient then after induction of anesthesia back prepped with chlorhexidine 3 times , Then under strict sterile technique, local infiltration of the skin and subcutaneous tissue with lidocaine 1% 3 mL then 20-gauge PUJUNK needle advanced slowly under ultrasound guidance And placed on top of the transverse process of C7 vertebra on the left side below the longus colli muscle, then after negative aspiration ropivacaine 0.5% 9 mL mixed with 40 mg of Depo-Medrol, injected after negative aspiration, patient tolerated the procedure well without complication, patient taken to recovery room in stable condition and she will be discharged home after discharge criteria met
[2020-08-20 13:45] VITALS: BP 139/84; PULSE 70; RESP 14
== END 2020-08-20 13:50 ==
LOC: ORPAIN 12:08
PROVIDERS: ATTEND Specialist
DX: G90.512 Complex regional pain syndrome I of left upper limb (principal); Z88.8 Allergy status to other drugs, medicaments and biological substances; Z88.1 Allergy status to other antibiotic agents; Z91.09 Other allergy status, other than to drugs and biological substances
CPT/HCPCS: 64510; J1030; J2795

== ENCOUNTER → 2020-12-05 | Outpatient (CLI) | payer OTHER ==
[2020-12-06 06:07] LABS: Hepatitis B Core IgM Non-Reactive (Non-Reactive); Hepatitis B Surface AB- Quant 196.5 mIU/mL; Hepatitis B Surface Antibody Reactive (Non-Reactive); Hepatitis B Surface Antigen Non-Reactive (Non-Reactive); Hepatitis C IgG Antibody Non-Reactive (Non-Reactive)
== END | disposition home or self-care (01) ==
LOC: LABWHC1 15:56
PROVIDERS: ATTEND Specialist
DX: M06.00 Rheumatoid arthritis without rheumatoid factor, unspecified site (principal)
CPT/HCPCS: 36415; 86480; 86705; 86706; 86803; 87340

== ENCOUNTER → 2021-02-12 | Outpatient (CLI) | payer OTHER ==
--- NOTE | 2021-02-12 15:07 | CT ---
EXAMINATION TYPE: CT sinus wo con DATE OF EXAM: 02/12/2021 COMPARISON: Prior sinus CT 2018 HISTORY: Sinusitis. Hx Common variable immunodeficiency CT DLP: 446.9 mGycm. Automated Exposure Control for Dose Reduction was Utilized. TECHNIQUE: CT scan of the sinuses is performed without contrast, axial images are obtained, coronal r eformatted images are also reviewed. FINDINGS: The paranasal sinuses including the frontal, ethmoid, sphenoid, and maxillary sinuses bila terally are well-aerated without new suspicious opacification or air-fluid level. The surgically josé miguel ated ostiomeatal complex remains patent bilaterally on the coronal images. Visualized portion of mastoid air cells show no abnormal opacification. The globes are intact bilate rally. Visualized portion of brain shows mild generalized atrophy. IMPRESSION: The sinuses remain clear and the surgically treated ostiomeatal complex remains patent bi laterally.
== END | disposition home or self-care (01) ==
LOC: RADCTMAIN 14:28
PROVIDERS: ATTEND Internal Medicine
DX: J32.9 Chronic sinusitis, unspecified (principal)
CPT/HCPCS: 70486; 82784; 86769

== ENCOUNTER → 2021-07-30 | Outpatient (CLI) | payer OTHER ==
--- NOTE | 2021-07-30 13:36 | US ---
EXAMINATION TYPE: US abdomen limited DATE OF EXAM: 07/30/2021 COMPARISON: NONE CLINICAL HISTORY: R19.00 Intra-abdominal and pelvic swelling, mass. LLQ redness/palp 1.5months Complex cystic area measuring 1.1x0.6x0.7cm with surrounding edema in area of palp. IMPRESSION: Nonspecific complex cystic lesion at the site of clinical concern.
== END | disposition home or self-care (01) ==
LOC: RADUSWWP 12:14
PROVIDERS: ATTEND Family Medicine
DX: R19.00 Intra-abdominal and pelvic swelling, mass and lump, unspecified site (principal)
CPT/HCPCS: 76705

== ENCOUNTER → 2021-09-19 | Outpatient (CLI) | payer OTHER ==
[2021-09-19 15:58] LABS: VLDL Calculation 17.92 mg/dL (5.00-40.00)
[2021-09-19 16:16] LABS: Basophils # (A) 0.05 X 10*3/uL (0.00-0.10); Basophils % (A) 1.1 %; Eosinophils # (A) 0.17 X 10*3/uL (0.04-0.35); Eosinophils % (A) 3.6 %; HCT 43.1 % (37.2-46.3); Lymphocytes # (A) 1.85 X 10*3/uL (0.90-5.00); Lymphocytes % (A) 39.5 %; MCH 27.3 pg (27.0-32.0); MCHC 32.5 g/dL (32.0-37.0); MCV 84.2 fL (80.0-97.0); Mean Platelet Volume 9.4 fL (9.5-12.2); Monocytes # (A) 0.36 X 10*3/uL (0.20-1.00); Monocytes % (A) 7.7 %; Neutrophils # (A) 2.24 X 10*3/uL (1.80-7.70); Neutrophils % (A) 47.9 %; Platelet Count 268 X 10*3/uL (140-440); RBC 5.12 X 10*6/uL (4.10-5.20); RDW 13.2 % (11.5-14.5); WBC 4.68 X 10*3/uL (4.50-10.00)
[2021-09-19 23:39] LABS: Erythrocyte Sedimentation Rate 10 mm/Hr (0-30)
== END | disposition home or self-care (01) ==
LOC: LABWHC1 09:48
PROVIDERS: ATTEND Internal Medicine
DX: H35.042 Retinal micro-aneurysms, unspecified, left eye (principal); R22.2 Localized swelling, mass and lump, trunk; R53.83 Other fatigue
CPT/HCPCS: 36415; 80061; 82306; 82607; 82746; 83036; 85025; 85652; 86140

== ENCOUNTER → 2021-10-15 | Outpatient (CLI) | payer OTHER ==
--- NOTE | 2021-10-15 15:19 | US ---
EXAMINATION TYPE: US carotid duplex BILAT DATE OF EXAM: 10/15/2021 COMPARISON: NONE CLINICAL HISTORY: 55-year-old female G45.3 AMAUROSIS FUGAX. TECHNIQUE: Carotid duplex ultrasound examination. Indirect Doppler criteria is utilized. FINDINGS: EXAM MEASUREMENTS: RIGHT: Peak Systolic Velocity (PSV) cm/sec ----- Right CCA: 96.1 ----- Right ICA: 102 ----- Right ECA: 117 ICA/CCA ratio: 1.06 RIGHT: End Diastole cm/sec ----- Right CCA: 22.1 ----- Right ICA: 24.0 ----- Right ECA: 16.2 LEFT: Peak Systolic Velocity (PSV) cm/sec ----- Left CCA: 97.0 ----- Left ICA: 110 ----- Left ECA: 110 ICA/CCA ratio: 1.32 LEFT: End Diastole cm/sec ----- Left CCA: 27.0 ----- Left ICA: 37.9 ----- Left ECA: 14.3 VERTEBRALS (direction of flow): Right Vertebral: Antegrade Left Vertebral: Antegrade Rhythm: Normal Welfare Visitor notes: No elevated velocities; no evidence of significant plaque formation. IMPRESSION: No hemodynamically significant internal carotid artery stenosis on either side. Criteria for Assigning % of Stenosis / Diameter reduction (Estimation based on the indirect measurements of the internal carotid artery velocities (ICA PSV). 1. Normal (no stenosis)=ICA PSV < 125 cm/s: ratio < 2.0: ICA EDV<40 cm/s. 2. Less than 50% stenosis=ICA PSV < 125 cm/s: ratio < 2.0: ICA EDV<40 cm/s. 3. 50 to 69% stenosis=ICA PSV of 125 to 230 cm/s: ration 2.0 ? 4.0: ICA EDV 40-100 cm/s. 4. Greater than 70% stenosis to near occlusion= ICA PSV > 230 cm/s: ratio > 4.0: ICA EDV > 100 cm/s. 5. Near occlusion= ICA PSV velocities may be low or undetectable: variable ratio and ICA EDV. 6. Total occlusion=unable to detect flow.
== END | disposition home or self-care (01) ==
LOC: RADUSWWP 12:21
PROVIDERS: ATTEND Ophthalmology
DX: G45.3 Amaurosis fugax (principal)
CPT/HCPCS: 93880

== ENCOUNTER → 2022-02-12 | Outpatient (CLI) | payer OTHER ==
[2022-02-12 14:46] VITALS: BP 176/91; PULSE 82; RESP 18
--- NOTE | 2022-02-12 14:50 | P.PN ---
Subjective Progress Note Date: 02/12/22 Principal diagnosis: A 56 yr old female with a history of severe and chronic L shoulder pain s/p pull injury presents today for evaluation. Pt has completed a L shoulder x-ray and is scheduled for MRI of the cervical spine and L shoulder in 3 days. Pain level is 9 out of 10 in intensity, localized in the left shoulder joint, sharp, stabbing in character and constant. Patient has visited the ER 2 times over the last 3 weeks due to intractable pain. Pain radiates to her elbow. Pain is provoked by any movement. Pain is alleviated with medications, Cokato 10/325 which is ineffective, Robaxin and Flexeril), topicals which provided no relief, alternating ice and heat, physical therapy in January 2021 which provided no relief, home exercise regimen as tolerated, use of a left upper extremities sling which provides no relief and rest. Patient is currently on Cokato 10/325mg from Dr Kumar Patient denies any side effects of the medication(s), denies excessive drowsiness or sleepiness, denies suicidal ideation and reports that the current pain medication is helping to control the pain and improve activities of daily living. Patient denies any motor or sensory deficits. Patient denies any fever or night sweats, denies any change in the bowel movements or urination. Physical Examination: -Constitutional: Cooperative. Not in acute distress . -HEENT: Neck is supple. No lymphadenopathy. No thyromegaly. Normal thyroid size. Eyes: No ptosis , no icterus, no photophobia. ENT: No auditory deficits. Normal oropharynx. No Thrush. - Respiratory: Chest clear to auscultations bilaterally. No wheezing. No rhonchi. - Cardiovascular: Regular rate and rhythm. S1 / S2 , no S3 , no S4. - Gastrointestinal: Abdomen soft no tenderness. Bowel sounds positive in all four quadrants. No organomegaly. - Genitourinary: Deferred. - Neurologic: Cranial nerve II to XII intact. No focal neurological deficits. - Psychatric: Alert & oriented x 3. Matching mood & appropriate affect. Judgment and insight intact. - Lymphatic: No Lymphadenopathy. - Musculoskeletal: Extremities: LUE craddling. Tenderness to palpation over the AC & GH joint lines. No effusion noted. Cervical spine: Muscle bulk/ tone/ strength in the bilateral upper extremities normal. Facet loading test cervical area positive. Lumbar spine: Motor bulk/ tone/ strength lower extremities , thigh and legs : 5/5 Deep tendon reflexes : Normal Knee Jerk. Normal Ankle Jerk . Vertebral body tenderness to palpation over Lumbar Facet Loading Test positive Straight Leg Raise: positive at 30 degrees right side/ left side Gaenslen's Test positive Sacral spine : Severe tenderness over the Sacroiliac joint: right side / left side Range of motion: Flexion of the lumbar spine <60 degrees Range of motion: Extension of the lumbar spine <20 degrees Gaenslen's Test positive Dick test: positive right side / left side Assessment and plan: Chronic low back pain secondary to lumbar degenerative disc disease , lumbar spondylosis with facet arthropathy without myelopathy Pt states she has no pain relief with Cokato. She also states she has a history of GI bleed with hospitalization due to NSAID use. At one of her ER visits, Toradol IVP was effective. Will prescribe Toradol nasal spray to bypass the GI system. Also filled Lidoderm patches. Directed on use. Side effects and adverse reactions discussed and pt acknowledged understanding. All patient questions answered MAPS reviewed and it was appropriate. I have spent 31 minutes on patient care today. Dr Castañeda was available by phone for the evaluation of this patient. The time was used to review the medical records including relevant urine studies and Prescription history (MAPs) , review of the available imaging, evaluation and examination of the patient, coordination of care with the medical staff and if applicable referring physicians, as well as creation of the medical record PQRS Measure Charge Sheet Mode of Arrival: Ambulatory PQRS Narrative: Smoking Status Never smoker Blood Pressure 176/91 Pain Intensity [Neck] 9 Scale Used Numeric (1 - 10) Hx Alcohol Use (MH) Yes Home Medications: Ambulatory Orders LORazepam [Ativan] 0.5 - 1 mg PO BID PRN 11/20/16 Metoprolol Succinate [Toprol XL] 50 mg PO HS 11/20/16 Omeprazole 40 mg PO DAILY 11/20/16 Arnica Cream 1 applicate TOPICAL DIRECTED PRN 05/30/20 HYDROcodone/APAP 10-325MG [Cokato 10-325] 0.5 - 1 tab PO Q6HR PRN 05/30/20 Hizentra Infusion 1 dose IV Q14D 05/30/20 Immuneti 1 tab PO DAILY 05/30/20 Naproxen Sodium [Aleve] 220 mg PO BID PRN 05/30/20 Ketorolac Tromethamine [Ketorolac Tromethamine Nasal [place]] 1 spray EA NOSTRIL Q6HR 30 Days #20 each 02/12/22 Lidocaine 5% Patch [Lidoderm] 1 patch TOPICAL QAM 30 Days #30 patch 02/12/22
== END ==
LOC: PNWHC3 13:28
PROVIDERS: ATTEND Specialist
DX: M51.36 Other intervertebral disc degeneration, lumbar region (principal); M47.816 Spondylosis without myelopathy or radiculopathy, lumbar region; G89.29 Other chronic pain; Z88.1 Allergy status to other antibiotic agents; Z91.048 Other nonmedicinal substance allergy status; Z88.0 Allergy status to penicillin; Z88.8 Allergy status to other drugs, medicaments and biological substances; Z88.6 Allergy status to analgesic agent
CPT/HCPCS: 99211

== ENCOUNTER → 2022-02-14 | Outpatient (CLI) | payer OTHER ==
--- NOTE | 2022-02-14 11:14 | MR ---
EXAMINATION TYPE: MR cervical spine wo con DATE OF EXAM: 02/14/2022 COMPARISON: None HISTORY: Cervicalgia and severe left shoulder and upper arm pain TECHNIQUE: Multiplanar, multisequence images of the cervical spine were acquired without contrast. The craniovertebral junction relationships and prevertebral soft tissues are normal. Cervical vertebral segments are normal in height and alignment and there is no fracture or subluxatio n There is mild degenerative disc disease with mild space narrowing and posterior disc bulge and spondy losis at the C5-6 and C6-7 levels secondary to posterior disc bulge and spondylosis, there is mild ma ss effect on the ventral aspect of thecal sac. There is no cervical disc herniation. There is no cervical cord abnormality or cervical stenosis. Secondary to degenerative changes of the uncovertebral joint and facet joint there is severe neural f oraminal stenosis at the C3-4 level on the left. There is severe neural foraminal stenosis at the C5- 6 level bilaterally. The paraspinal soft tissues are unremarkable. IMPRESSION: 1. Cervical vertebral segments are normal in height and alignment and there is no fracture or subluxa tion. 2. Mild degenerative disc disease at C5-6 and C6-7 levels without cervical disc herniation. 3. Normal cervical cord and no cervical stenosis. 4. Severe neural foraminal stenosis at the C3-4 level on the left and at the C5-6 level bilaterally.
--- NOTE | 2022-02-14 11:20 | MR ---
EXAMINATION TYPE: MR shoulder LT wo con DATE OF EXAM: 02/14/2022 COMPARISON: None HISTORY: Cervicalgia and severe left shoulder and upper arm pain TECHNIQUE: Multiplanar, multisequence imaging of the left shoulder is performed without contrast. FINDINGS: The osseous structures are intact and there is no fracture or focal intraosseous. There is moderate osteoarthritic change of the acromioclavicular joint resulting in moderate shoulder impingement. There is also cartilaginous thinning and moderate osteoarthritic change of the glenohum eral joint. There is a small glenohumeral joint effusion. There is mild subdeltoid bursitis. There is a small intrasubstance tear of the supraspinatus tendon near the musculotendinous junction a nd there is tendinosis of the distal supraspinatus tendon. There is no retraction of the musculotendi nous junction. The remaining tendons of rotator cuff are intact. The biceps tendon is normal in signal intensity and location The cartilaginous labrum is grossly intact IMPRESSION: 1. Moderate osteophytic change of the glenohumeral joint and acromioclavicular joint. There is mild s houlder impingement. 2. Small intrasubstance tear of the supraspinatus tendon at the musculotendinous junction and mild te ndinosis of the distal tendon. 3. Small right glenohumeral joint effusion 4. mild subacromial and subdeltoid bursitis. 5. Normal biceps tendon
== END | disposition home or self-care (01) ==
LOC: RADMRIMAIN 09:24
PROVIDERS: ATTEND Family Medicine
DX: M50.322 Other cervical disc degeneration at C5-C6 level (principal); M48.02 Spinal stenosis, cervical region
CPT/HCPCS: 72141

== ENCOUNTER → 2022-03-25 | Outpatient (CLI) | payer OTHER ==
--- NOTE | 2022-03-27 07:51 | MM ---
Reason for Exam: Screening (asymptomatic). Last mammogram was performed 1 year(s) and 9 month(s) ago. Patient History: Menarche at age 14. First Full-Term at age 32. Late child-bearing (after 32). Postmenopausal. Hormonal Contraceptives for 8 years from age 31 until age 39. 1994, Reduction on the Right side. 1994, Reduction on the Left side. Maternal grandmother had breast cancer, age 60. Risk Values: Annamaria 5 year model risk: 1.6%. NCI Lifetime model risk: 11.4%. Prior Study Comparison: 12/16/2016 Bilateral Screening Mammogram, [facility]. 06/08/2018 Bilateral Screening Mammogram, [facility]. 06/21/2020 Bilateral Screening Mammogram, [facility]. Tissue Density: The breast tissue is heterogeneously dense. This may lower the sensitivity of mammography. Findings: Analyzed By CAD. There is no suspicious group of microcalcifications or new suspicious mass in either breast. Overall Assessment: Negative, BI-RAD 1 Management: Screening Mammogram of both breasts in 1 year. A clinical breast exam by your physician is recommended on an annual basis and results should be correlated with mammographic findings. Electronically signed and approved by: Dillon Marina M.D. Radiologis
== END | disposition home or self-care (01) ==
LOC: RADMAMWWP 16:08
PROVIDERS: ATTEND Family Medicine
DX: Z12.31 Encounter for screening mammogram for malignant neoplasm of breast (principal); Z78.0 Asymptomatic menopausal state; Z80.3 Family history of malignant neoplasm of breast
CPT/HCPCS: 77067

== ENCOUNTER → 2022-03-25 | Outpatient (CLI) | payer OTHER ==
[2022-03-25 22:52] LABS: ALT 16 U/L (8-44); AST 14 U/L (13-35); African American GFR (CKD) 92.1 (60.0-200.0); Albumin 4.3 g/dL (3.8-4.9); Albumin/Globulin Ratio 1.93 (1.60-3.17); Alkaline Phosphatase 81 U/L (41-126); BUN/Creat Ratio 16.43 Ratio (12.00-20.00); Blood Urea Nitrogen 13.7 mg/dL (9.0-27.0); C Reactive Protein <0.30 mg/dL (0.00-0.80); Calcium 9.3 mg/dL (8.7-10.3); Carbon Dioxide 27.3 mmol/L (20.0-27.5); Chloride 103 mmol/L (96-109); Globulin 2.2 g/dL (1.6-3.3); Glucose 110 mg/dL (70-110); Non-African American GFR(CKD) 79.5 (60.0-200.0); Sodium 139 mmol/L (135-145); Total Protein 6.5 g/dL (6.2-8.2)
[2022-03-25 23:09] LABS: Hepatitis B Surface Antibody Reactive (Nonreactive)
[2022-03-25 23:10] LABS: Hepatitis B Core IgM Nonreactive (Nonreactive); Hepatitis B Surface Antigen Nonreactive (Nonreactive); Hepatitis C IgG Antibody Nonreactive (Nonreactive)
[2022-03-25 23:14] LABS: Basophils # (A) 0.05 X 10*3/uL (0.00-0.10); Basophils % (A) 0.8 %; Eosinophils # (A) 0.13 X 10*3/uL (0.04-0.35); HCT 41.7 % (37.2-46.3); HGB 13.7 g/dL (12.0-15.0); Immature Grans, Automated 0.3 %; Lymphocytes % (A) 33.3 %; MCH 27.5 pg (27.0-32.0); MCHC 32.9 g/dL (32.0-37.0); MCV 83.6 fL (80.0-97.0); Mean Platelet Volume 9.3 fL (9.5-12.2); Monocytes % (A) 6.1 %; NRBC Per 100 WBC 0 /100 WBCS (0.0-0.0); Neutrophils % (A) 57.5 %; Platelet Count 295 X 10*3/uL (140-440); RBC 4.99 X 10*6/uL (4.10-5.20); RDW 13.7 % (11.5-14.5)
[2022-03-26 01:26] LABS: Erythrocyte Sedimentation Rate 15 mm/Hr (0-30)
== END | disposition home or self-care (01) ==
LOC: LABWHC1 16:28
PROVIDERS: ATTEND Specialist
DX: M06.00 Rheumatoid arthritis without rheumatoid factor, unspecified site (principal)
CPT/HCPCS: 36415; 80053; 85025; 85652; 86140; 86480; 86705; 86706; 86803; 87340

== ENCOUNTER → 2022-05-21 | Outpatient (CLI) | payer OTHER ==
--- NOTE | 2022-05-22 04:12 | MR ---
EXAMINATION TYPE: MR knee LT wo con DATE OF EXAM: 05/21/2022 COMPARISON: 07/24/2020 HISTORY: Left knee pain, mass above patella with marker placed, history of surgery. Multiplanar multiecho imaging of the left knee with no contrast. There is linear defect in the distal femur and proximal tibia related to reconstructive surgery on th e anterior cruciate ligament. The anterior cruciate ligament appears intact. There is a mild knee laura nt effusion. The medial and lateral menisci appear intact. There is some thinning of the medial menis cus. There is slight narrowing of the medial joint space. The collateral ligaments are intact. No foc al bone destruction. No fracture seen. The patella is intact. IMPRESSION: There is some mild osteoarthritic narrowing of the medial joint space. There is thinning of the media l meniscus. Mild knee joint effusion. No evidence of ligamentous tear. No significant change compared to old exams.
== END | disposition home or self-care (01) ==
LOC: RADMRIMAIN 16:19
PROVIDERS: ATTEND Orthopaedic Surgery
DX: M17.12 Unilateral primary osteoarthritis, left knee (principal); R22.42 Localized swelling, mass and lump, left lower limb

== ENCOUNTER → 2022-08-07 | Outpatient (CLI) | payer OTHER ==
--- NOTE | 2022-08-12 08:45 | US ---
EXAMINATION TYPE: US arterial LE single level DATE OF EXAM: 08/07/2022 1:44 PM CLINICAL HISTORY: I73.9 PERIPHERAL VASCULAR DISEASE,. History of hypertension Doppler Waveforms: Right: Multiphasic Left: Multiphasic Ankle-Brachial Indices: Right: 1.19 Left: 1.19 Toe Brachial Indices: Right: 0.74 Left: 0.75 IMPRESSION: Normal study
== END | disposition home or self-care (01) ==
LOC: RADUSWWP 13:16
PROVIDERS: ATTEND Podiatrist Foot & Ankle Surgery
DX: I73.9 Peripheral vascular disease, unspecified (principal); I10 Essential (primary) hypertension
CPT/HCPCS: 93922

== ENCOUNTER → 2022-11-11 | Outpatient (CLI) | payer OTHER ==
[2022-11-11 14:27] LABS: Basophils # (A) 0.04 X 10*3/uL (0.00-0.10); Basophils % (A) 0.8 %; Eosinophils # (A) 0.17 X 10*3/uL (0.04-0.35); Eosinophils % (A) 3.4 %; HCT 43.1 % (37.2-46.3); Immature Grans, Automated 0.2 %; Lymphocytes # (A) 1.74 X 10*3/uL (0.90-5.00); Lymphocytes % (A) 35.3 %; MCHC 32.5 g/dL (32.0-37.0); Mean Platelet Volume 9.4 fL (9.5-12.2); Monocytes # (A) 0.33 X 10*3/uL (0.20-1.00); Monocytes % (A) 6.7 %; NRBC Per 100 WBC 0 /100 WBCS (0.0-0.0); Neutrophils # (A) 2.64 X 10*3/uL (1.80-7.70); Neutrophils % (A) 53.6 %; Platelet Count 271 X 10*3/uL (140-440); RBC 5.19 X 10*6/uL (4.10-5.20); RDW 13.2 % (11.5-14.5); WBC 4.93 X 10*3/uL (4.50-10.00)
[2022-11-11 15:07] LABS: Erythrocyte Sedimentation Rate 7 mm/Hr (0-30)
[2022-11-11 15:31] LABS: ALT 21 U/L (8-44); AST 20 U/L (13-35); Albumin 4.2 g/dL (3.8-4.9); Albumin/Globulin Ratio 2.16 (1.60-3.17); Alkaline Phosphatase 79 U/L (41-126); BUN/Creat Ratio 13.74 Ratio (12.00-20.00); Blood Urea Nitrogen 11.1 mg/dL (9.0-27.0); Calcium 9.3 mg/dL (8.7-10.3); Carbon Dioxide 26.6 mmol/L (20.0-27.5); Chloride 104 mmol/L (96-109); Chol/HDL Ratio 5.07 Ratio; Globulin 1.9 g/dL (1.6-3.3); Glucose 108 mg/dL (70-110); LDL Cholesterol,Calculated 150.6 mg/dL (0.0-131.0); Potassium 4.3 mmol/L (3.5-5.5); Sodium 142 mmol/L (135-145); Total Protein 6.1 g/dL (6.2-8.2); VLDL Calculation 13.24 mg/dL (5.00-40.00)
[2022-11-11 15:35] LABS: Hepatitis B Core IgM Nonreactive (Nonreactive); Hepatitis B Surface Antigen Nonreactive (Nonreactive); Hepatitis C IgG Antibody Nonreactive (Nonreactive)
[2022-11-11 15:55] LABS: Hepatitis B Surface Antibody Reactive (Nonreactive)
== END | disposition home or self-care (01) ==
LOC: LABWHC1 09:29
DX: I10 Essential (primary) hypertension (principal); Z79.899 Other long term (current) drug therapy; D84.9 Immunodeficiency, unspecified; E55.9 Vitamin D deficiency, unspecified; E66.9 Obesity, unspecified; D83.9 Common variable immunodeficiency, unspecified; R53.83 Other fatigue
CPT/HCPCS: 36415; 80053; 80061; 82306; 82607; 82784; 83036; 83525; 84443; 85025; 85652; 86140; 86480; 86704; 86705; 86706; 86803; 87340

== ENCOUNTER → 2022-11-11 | Outpatient (CLI) | payer OTHER ==
--- NOTE | 2022-11-11 11:12 | FL ---
ESOPHOGRAM. HISTORY: Dysphagia Esophagram was performed per the air contrast technique. The patient swallowed barium and effervesce nt crystals without difficulty or delay. Esophageal peristalsis and motility appear to be within normal limits. There is no evidence for filling defect, mass or diverticulum. Ventral spurring at C6-7 impresses mi ldly upon the posterior wall of the cervical esophagus. No hiatal hernia seen. Subsequently single contrast cervical esophagram was performed which fails demonstrate evidence for a spiration penetration or mass. IMPRESSION: Ventral spurring at C6-7 impresses mildly upon the posterior wall of the cervical esophag us. Otherwise unremarkable study.
== END | disposition home or self-care (01) ==
LOC: RADUSWWP 10:07
PROVIDERS: ATTEND Internal Medicine Gastroenterology
DX: R13.10 Dysphagia, unspecified (principal); M25.78 Osteophyte, vertebrae
CPT/HCPCS: 74220

== ENCOUNTER → 2022-12-24 | Outpatient (CLI) | payer OTHER ==
--- NOTE | 2022-12-24 15:14 | CT ---
EXAMINATION TYPE: CT sinus wo con DATE OF EXAM: 12/24/2022 COMPARISON: Prior sinus CT February 12, 2021 HISTORY: Chronic ethmoidal sinusitis CT DLP: 435.9 mGycm. Automated Exposure Control for Dose Reduction was Utilized. TECHNIQUE: CT scan of the sinuses is performed without contrast, axial images are obtained, coronal r eformatted images are also reviewed. FINDINGS: There is new small 7 mm mucous retention cyst or polyp in the posterior inferior right maxi llary sinus coronal image 25. Remainder paranasal sinuses are clear without suspicious opacification or air-fluid levels. The surgically treated ostiomeatal complex is widely patent bilaterally on the coronal images. Visualized portion of mastoid air cells show no abnormal opacification. The globes are intact bilate rally. Visualized brain parenchyma redemonstrates diffuse cerebral atrophy greatest over the bilatera l frontal lobes. IMPRESSION: There is new chronic right maxillary sinus disease. No acute sinusitis.
== END | disposition home or self-care (01) ==
LOC: RADCTMAIN 14:46
PROVIDERS: ATTEND Otolaryngology Otolaryngology/Facial Plastic Surgery
DX: J32.0 Chronic maxillary sinusitis (principal); J32.2 Chronic ethmoidal sinusitis
CPT/HCPCS: 70486

== ENCOUNTER → 2023-05-10 | Outpatient (CLI) | payer OTHER ==
[2023-05-10 20:47] LABS: ALT 19 U/L (8-44); AST 21 U/L (13-35); Blood Urea Nitrogen 10.6 mg/dL (9.0-27.0)
[2023-05-10 21:42] LABS: Basophils # (A) 0.06 X 10*3/uL (0.00-0.10); Basophils % (A) 0.9 %; Eosinophils # (A) 0.17 X 10*3/uL (0.04-0.35); Eosinophils % (A) 2.6 %; HCT 43.2 % (37.2-46.3); HGB 14.1 d/dL (12.0-15.0); Lymphocytes # (A) 2.57 X 10*3/uL (0.90-5.00); Lymphocytes % (A) 39.8 %; MCH 29.3 pg (27.0-32.0); MCHC 32.6 d/dL (32.0-37.0); MCV 89.8 FL (80.0-97.0); Mean Platelet Volume 10.4 FL (9.5-12.2); Monocytes # (A) 0.41 X 10*3/uL (0.20-1.00); Monocytes % (A) 6.4 %; NRBC Per 100 WBC 0 X 10*3/uL (0.00-0.01); Neutrophils # (A) 3.22 X 10*3/uL (1.80-7.70); Platelet Count 315 X 10*3/uL (140-440); RBC 4.81 X 10*6/uL (4.10-5.20); RDW 14.4 % (11.5-14.5); WBC 6.45 X 10*3/uL (4.50-10.00)
== END | disposition home or self-care (01) ==
LOC: LABWHC1 14:55
PROVIDERS: ATTEND Specialist
DX: Z51.81 Encounter for therapeutic drug level monitoring (principal)
CPT/HCPCS: 36415; 82565; 84450; 84460; 84520; 85025

== ENCOUNTER → 2023-06-15 | Outpatient (CLI) | payer OTHER ==
--- NOTE | 2023-06-16 12:32 | MM ---
Reason for Exam: Screening (asymptomatic). Last mammogram was performed 1 year(s) and 3 month(s) ago. Patient History: Menarche at age 14. First Full-Term at age 32. Late child-bearing (after 32). Postmenopausal. Hormonal Contraceptives for 8 years from age 31 until age 39. 1994, Reduction on the Right side. 1994, Reduction on the Left side. Maternal grandmother had breast cancer, age 60. Risk Values: Annamaria 5 year model risk: 1.6%. NCI Lifetime model risk: 11.2%. Prior Study Comparison: 06/08/2018 Bilateral Screening Mammogram, [facility]. 06/21/2020 Bilateral Screening Mammogram, [facility]. 03/25/2022 Bilateral MG screening mammo w CAD, [facility]. Tissue Density: There are scattered fibroglandular densities. Findings: Analyzed By CAD. Pattern appears symmetrical and stable. No significant interval change is evident. There is a small focal asymmetry within the posterior left mid medial lateral oblique view. Compression view over this area is recommended. Standard medial lateral view be performed left breast. Overall Assessment: Incomplete: need additional imaging evaluation, BI-RAD 0 Management: Diagnostic Mammogram of the left breast. A negative mammogram report should not preclude additional follow up of suspicious palpable abnormalities. Patient should continue monthly self breast exam. A clinical breast exam by your physician is recommended on an annual basis and results should be correlated with mammographic findings. Electronically signed and approved by: Matty Tomlinson D.O. Radiologis
== END | disposition home or self-care (01) ==
LOC: RADMAMWWP 10:43
PROVIDERS: ATTEND Family Medicine
DX: Z12.31 Encounter for screening mammogram for malignant neoplasm of breast (principal); Z78.0 Asymptomatic menopausal state; Z80.3 Family history of malignant neoplasm of breast
CPT/HCPCS: 77067

== ENCOUNTER → 2023-08-13 | Outpatient (CLI) | payer OTHER ==
--- NOTE | 2023-08-16 12:10 | NM ---
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 Immedia te images and 5 hours post injection images acquired. FINDINGS: There is increased flow to the right wrist . Increased soft tissue uptake is seen in this region. Photopenic defects are seen involving the knees compatible with previous replacement surgery. Abnormal uptake involving the feet is nonspecific likely post arthritic. Abnormal uptake involving the right shoulder likely post arthritic. Slightly mild intensity uptake in volving bilateral hip likely post arthritic. Abnormal uptake involving the mandible likely related to periodontal disease. A moderate intensity uptake throughout the thoracic and mid to lower lumbar spine likely degenerative . IMPRESSION: 1. Intense abnormal uptake involving the bilateral wrist recommend dedicated x-ray. 2. Abnormal uptake right shoulder likely post arthritic recommend x-ray.
== END | disposition home or self-care (01) ==
LOC: RADNMMAIN 07:18
PROVIDERS: ATTEND Anesthesiology
DX: G90.50 Complex regional pain syndrome I, unspecified (principal); R93.7 Abnormal findings on diagnostic imaging of other parts of musculoskeletal system
CPT/HCPCS: 78315

== ENCOUNTER → 2023-08-23 | Outpatient (CLI) | payer OTHER ==
--- NOTE | 2023-08-23 10:46 | MR ---
Reason for elevated uncovertebral joint hypertrophy. No known canal stenosis. Normal mild bilateral f oraminal encroachment. Mild disc bulging. TYPE: MR cervical spine wo/w con DATE OF EXAM: 08/23/2023 COMPARISON: 02/14/2022 HISTORY: Neck pain into rt shoulder/arm TECHNIQUE: Multiplanar, multisequence images of the cervical spine were acquired without contrast and with 8.5 m L intravenous Gadavist gadolinium contrast. Diffusion weighted imaging was performed. C2-C3: No evidence for degenerative disc disease. No disc bulge/herniation or protrusion. No Canal stenosis. Foramina are patent bilaterally. C3-C4: No evidence for degenerative disc disease. No disc bulge/herniation or protrusion. No Canal stenosis. Uncovertebral joint hypertrophy on the left results in moderate to severe foraminal encroac hment. C4-C5: No evidence for degenerative disc disease. No disc bulge/herniation or protrusion. No Canal stenosis. Foramina are patent bilaterally. C5-C6: Moderate to severe degenerative disc disease posterior spondylosis and bilateral uncovertebral joint hypertrophy And moderate to severe bilateral foraminal encroachment is noted. C6-C7: No evidence for degenerative disc disease. No disc bulge/herniation or protrusion. No Canal stenosis. Foramina are patent bilaterally. C7-T1: No evidence for degenerative disc disease. No disc bulge/herniation or protrusion. No Canal stenosis. Foramina are patent bilaterally. Cervical segments are intact. There is normal alignment. Cervical spinal cord is of normal signal. Craniovertebral junction relationships are within normal limits. IMPRESSION: 1. Uncovertebral joint hypertrophy on the left C3-C4 stable resulting in moderate to severe foraminal encroachment. 2. Multilevel degenerative disc disease most marked C5-C6 with uncovertebral joint hypertrophy and mo derate to severe bilateral foraminal encroachment.
== END | disposition home or self-care (01) ==
LOC: RADMRIMAIN 08:37
PROVIDERS: ATTEND Psychiatry & Neurology Neurology
DX: M47.812 Spondylosis without myelopathy or radiculopathy, cervical region (principal); M50.322 Other cervical disc degeneration at C5-C6 level
CPT/HCPCS: 72156; A9585

== ENCOUNTER → 2023-09-30 | Outpatient (CLI) | payer OTHER ==
--- NOTE | 2023-09-30 10:47 | CT ---
EXAMINATION: CT ABDOMEN AND PELVIS WITH IV CONTRAST DATE OF EXAMINATION: 09/30/2023. COMPARISON: None available. INDICATION: Elbow pain. PROCEDURE: Axial CT of the abdomen and pelvis was performed with contrast and sagittal and coronal reformatted images were performed. CT dose lowering techniques were used, to include: automated expos ure control, adjustment for patient size, and/or use of iterative reconstruction. 100 mL of Isovue-30 0 was given intravenously. FINDINGS: LOWER CHEST : The visualized lung bases are clear. There are no pleural or pericardial effusions. ABDOMEN: Liver and Biliary system: Normal. Adrenal glands: Normal. Kidneys and ureters: Normal. Spleen: Normal. Pancreas: Normal. Gallbladder: Normal. Lymph nodes, Peritoneum and mesentery: There is no mesenteric or retroperitoneal lymphadenopathy. Gastrointestinal tract: There are no dilated loops of bowel or free intraperitoneal air. The appe ndix is normal. There is a small sliding hiatal hernia. Aorta/IVC: There is mild vascular calcification and plaque seen throughout the abdominal aorta with out evidence of aneurysmal dilation or dissection. IVC normal. Abdominal wall: Normal. PELVIS: Fluid: There is no free fluid in the pelvis. Lymph Nodes: There is no pelvic or inguinal lymphadenopathy.. Urinary bladder: Normal. BONES: There are no osseous destructive lesions.. ADDITIONAL SIGNIFICANT FINDINGS: None. IMPRESSION: No acute process within the abdomen or pelvis.
== END | disposition home or self-care (01) ==
LOC: RADCTMAIN 07:13
PROVIDERS: ATTEND Surgery
DX: R10.84 Generalized abdominal pain (principal); R39.81 Functional urinary incontinence
CPT/HCPCS: 74177; Q9967

== ENCOUNTER → 2023-09-30 | Outpatient (CLI) | payer OTHER ==
--- NOTE | 2023-09-30 15:31 | CT ---
EXAMINATION TYPE: CT sinus wo con CT DLP: 558 mGycm, Automated exposure control for dose reduction was used. DATE OF EXAM: 09/30/2023 9:11 AM COMPARISON: 12/24/2022. CLINICAL INDICATION:Female, 57 years old with history of sinusitis allergy; , sinusitis TECHNIQUE: Multiple thin axial images were obtained through the paranasal sinuses without the use of IV contrast. Additional coronal and sagittal reformatted images were submitted for evaluation. Contrast used: none Oral contrast used: none FINDINGS: Frontal sinuses: Normally developed and aerated. Frontal Recess: Clear Maxillary Sinuses: Normally developed and aerated. Maxillary Infundibula([facility]): Antrostomy changes bilaterally. Ethmoid sinuses: Normally developed and aerated. Ethmoidal notch: Unprotected bilateral anterior ethm oidal arteries. Sphenoid sinuses: Normally developed and aerated. There is sellar sphenoid sinus pneumatization witho ut evidence of dehiscence. No dehiscence of carotid canal. No evidence of optic nerve dehiscence wit hin the sphenoid sinus. No evidence of Onodi cells. Sphenoethmoidal recesses: Clear. Nasal septum: Within normal limits.. Nasal Turbinates: Within normal limits. Mastoid air cells & middle ears: The air cells are clear. The middle ears are grossly unremarkable. Modified Soft tissues & Brain: Partially seen without gross abnormality. Globes are intact. Atherosclerosis of the intracranial vasculature. Other: Cribriform plate demonstrates symmetric Keros classification type 2 cribriform plate. No evidence of bony dehiscence of skull base. Lamina papyracea is intact without evidence of remote orbital fracture or orbital prolapse into the e thmoid sinus. IMPRESSION: 1. Postsurgical changes with an antrostomy bilaterally without significant mucosal sinus disease. 2. The ostiomeatal units, frontonasal and sphenoethmoidal recesses are clear.
== END | disposition home or self-care (01) ==
LOC: RADCTMAIN 07:08
PROVIDERS: ATTEND Internal Medicine
DX: J32.9 Chronic sinusitis, unspecified (principal); Z98.890 Other specified postprocedural states
CPT/HCPCS: 70486

== ENCOUNTER → 2023-11-02 | Outpatient (CLI) | payer OTHER ==
[2023-11-02 16:55] LABS: Basophils # (A) 0.05 X 10*3/uL (0.00-0.10); Basophils % (A) 0.9 %; Eosinophils # (A) 0.12 X 10*3/uL (0.04-0.35); Eosinophils % (A) 2.3 %; HCT 42.1 % (37.2-46.3); HGB 14.1 g/dL (12.0-15.0); Lymphocytes # (A) 2.02 X 10*3/uL (0.90-5.00); MCH 28.1 pg (27.0-32.0); MCHC 33.5 g/dL (32.0-37.0); MCV 83.9 FL (80.0-97.0); Mean Platelet Volume 9.4 FL (9.5-12.2); Monocytes # (A) 0.38 X 10*3/uL (0.20-1.00); Monocytes % (A) 7.2 %; NRBC Per 100 WBC 0 X 10*3/uL (0.00-0.01); Neutrophils # (A) 2.73 X 10*3/uL (1.80-7.70); Neutrophils % (A) 51.4 %; Platelet Count 268 X 10*3/uL (140-440); RBC 5.02 X 10*6/uL (4.10-5.20); RDW 13.5 % (11.5-14.5); WBC 5.31 X 10*3/uL (4.50-10.00)
[2023-11-02 17:11] LABS: ALT 16 U/L (8-44); AST 13 U/L (13-35); Albumin 4.3 g/dL (3.8-4.9); Albumin/Globulin Ratio 2.05 Ratio (1.60-3.17); Alkaline Phosphatase 85 U/L (41-126); Blood Urea Nitrogen 11.9 mg/dL (9.0-27.0); Calcium 9.6 mg/dL (8.7-10.3); Chloride 103 mmol/L (96-109); Globulin 2.1 g/dL (1.6-3.3); Glucose 104 mg/dL (70-110); Potassium 4.2 mmol/L (3.5-5.5); Sodium 140 mmol/L (135-145); Total Bilirubin 0.3 mg/dL (0.3-1.2); Total Protein 6.4 g/dL (6.2-8.2)
[2023-11-02 23:35] LABS: INR 0.97 sec (0.93-1.11); Prothrombin Time 10.5 sec (9.9-11.9)
== END | disposition home or self-care (01) ==
LOC: LABWHC1 13:23
PROVIDERS: ATTEND Internal Medicine
DX: Z01.812 Encounter for preprocedural laboratory examination (principal); D80.1 Nonfamilial hypogammaglobulinemia; D84.9 Immunodeficiency, unspecified
CPT/HCPCS: 36415; 80053; 82784; 85025; 85610

== ENCOUNTER → 2023-11-02 | Outpatient (CLI) | payer OTHER ==
--- NOTE | 2023-11-02 14:11 | US ---
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 TECHNIQUE: Superficial and abdominal scanning of patient in the area of concern in the left lower qu adrant. FINDINGS/IMPRESSION: No ultrasound evidence for significant findings at patients area of concern. Th ere is scarring in the superficial LLQ at previous area of abscess drainage. No definitive fluid jennifer ection identified. No evidence for hernia.
== END | disposition home or self-care (01) ==
LOC: RADUSWWP 13:38
PROVIDERS: ATTEND Surgery
DX: R10.32 Left lower quadrant pain (principal)
CPT/HCPCS: 76705

== ENCOUNTER → 2023-11-29 | Outpatient (CLI) | payer OTHER ==
[2023-11-29 10:52] LABS: INR 0.9 (<1.2); Partial Thromboplastin Time 26.4 sec (22.0-30.0)
[2023-11-29 14:56] LABS: Basophils # (A) 0.05 X 10*3/uL (0.00-0.10); Eosinophils # (A) 0.16 X 10*3/uL (0.04-0.35); Eosinophils % (A) 3.1 %; HCT 42.4 % (37.2-46.3); HGB 14.2 g/dL (12.0-15.0); Lymphocytes % (A) 41.1 %; MCH 27.7 pg (27.0-32.0); MCHC 33.5 g/dL (32.0-37.0); MCV 82.8 FL (80.0-97.0); Mean Platelet Volume 9.3 FL (9.5-12.2); Monocytes # (A) 0.38 X 10*3/uL (0.20-1.00); Monocytes % (A) 7.4 %; NRBC Per 100 WBC 0 X 10*3/uL (0.00-0.01); Platelet Count 268 X 10*3/uL (140-440); RBC 5.12 X 10*6/uL (4.10-5.20); RDW 13.6 % (11.5-14.5); WBC 5.11 X 10*3/uL (4.50-10.00)
[2023-11-29 15:38] LABS: Blood Urea Nitrogen 10.8 mg/dL (9.0-27.0); Calcium 11.2 mg/dL (8.7-10.3); Chloride 102 mmol/L (96-109); Glucose 100 mg/dL (70-110); Potassium 4.2 mmol/L (3.5-5.5); Sodium 141 mmol/L (135-145)
== END | disposition home or self-care (01) ==
LOC: LABWHC1 09:04
PROVIDERS: ATTEND Family Medicine
DX: Z01.812 Encounter for preprocedural laboratory examination (principal)
CPT/HCPCS: 36415; 80048; 85025; 85610; 85730

== ENCOUNTER → 2024-06-16 | Outpatient (CLI) | payer OTHER ==
--- NOTE | 2024-06-18 01:30 | MR ---
EXAMINATION TYPE: MR orionine/lsmerrick wo con DATE OF EXAM: 06/16/2024 COMPARISON: CT abdomen and pelvis 09/30/2023, MR cervical spine 08/23/2023, MRI lumbar spine 08/31/20 17, CT chest 12/30/2016, MR C-spine/L-spine 08/28/2016, MRI T-spine/L-spine 04/28/2011. HISTORY: Post liposuction tissue damage and scaring causing mid and low back pain. bumps on back and around spine TECHNIQUE: Multiplanar, multisequence imaging of the thoracolumbar spine is performed without IV cont rast. FINDINGS: Sagittal images of the thoracolumbar spine show vertebral body heights and alignment to appear satisf actory. Mild multilevel disc desiccation of the mid thoracic spine. Minimal disc desiccation of the l ower lumbar spine. The spinal cord maintains normal signal throughout its visualized course. The conu s medullaris is normal in position and signal. Redemonstration of T1/T2 hyperintense focus within the L2 vertebral body most consistent with a benign vertebral hemangioma. The remaining bone marrow sign al intensity is within normal limits. Postsurgical changes mid and lower back soft tissue from liposu ction changes with scarring demonstrated. Scarring is identified primarily within 1 to 2 cm from the skin surface and does not appear to reach the back muscles and spinous processes. Similar C7-T1 mild right paracentral disc protrusion with minimal anterior thecal sac compression. No significant central canal stenosis. Minimal similar T1-T2 right paracentral disc bulge with minimal anterior thecal sac compression. No s ignificant central canal stenosis. Minimal similar T2-T3 broad based disc bulge with minimal anterior thecal sac compression. No signifi cant central canal stenosis. Small T4-T5 central disc protrusion with mild effacement of the anterior thecal sac. No significant c entral canal stenosis. Minimal T6-T7 central left paracentral bulging without significant effacement of the anterior thecal sac. No significant central canal stenosis. Tiny central T7-T8 disc protrusion with minimal effacement of the anterior thecal sac. No significant central canal stenosis. No significant thoracic neural foraminal stenosis is identified. No significant disc pathology or central canal stenosis or neural foraminal stenosis from T12 through L3. Broad-based disc bulge at L3-4 without significant central canal stenosis. Bilateral facet arthropath y. Minimal left neural foraminal stenosis. The right neural foramen is patent. Broad-based disc bulge with annular fissure at L4-L5. Results in mild effacement of the anterior thec al sac. No significant neural foraminal stenosis. Bilateral facet arthropathy. Mild bilateral neural foraminal stenosis. Broad-based disc bulge at L5-S1 with minimal effacement of the anterior thecal sac. No significant ce ntral canal stenosis. No neuroforaminal stenosis. IMPRESSION: Mild multilevel degenerative disc disease and facet arthropathy of the thoracolumbar spine as describ ed above. No significant central canal stenosis.
== END | disposition home or self-care (01) ==
LOC: RADMRIMAIN 17:52
PROVIDERS: ATTEND Anesthesiology
DX: M47.27 Other spondylosis with radiculopathy, lumbosacral region (principal); M51.15 Intervertebral disc disorders with radiculopathy, thoracolumbar region; M99.71 Connective tissue and disc stenosis of intervertebral foramina of cervical region
CPT/HCPCS: 72146; 72148

== ENCOUNTER → 2024-08-01 | Outpatient (CLI) | payer OTHER ==
[2024-08-01 15:52] LABS: Basophils # (A) 0.04 X 10*3/uL (0.00-0.10); Basophils % (A) 0.7 %; Eosinophils # (A) 0.18 X 10*3/uL (0.04-0.35); Eosinophils % (A) 3.3 %; HCT 42.6 % (37.2-46.3); HGB 14.3 g/dL (12.0-15.0); Lymphocytes % (A) 39.8 %; MCH 26.9 pg (27.0-32.0); MCHC 33.6 g/dL (32.0-37.0); MCV 80.1 FL (80.0-97.0); Mean Platelet Volume 9.9 FL (9.5-12.2); Monocytes # (A) 0.39 X 10*3/uL (0.20-1.00); Monocytes % (A) 7.1 %; NRBC Per 100 WBC 0 X 10*3/uL (0.00-0.01); Neutrophils # (A) 2.71 X 10*3/uL (1.80-7.70); Neutrophils % (A) 48.9 %; Platelet Count 293 X 10*3/uL (140-440); RBC 5.32 X 10*6/uL (4.10-5.20); RDW 13.6 % (11.5-14.5); WBC 5.53 X 10*3/uL (4.50-10.00)
[2024-08-01 17:36] LABS: ALT 21 U/L (8-44); AST 22 U/L (13-35); Albumin 4.4 g/dL (3.8-4.9); Albumin/Globulin Ratio 1.91 Ratio (1.60-3.17); Alkaline Phosphatase 92 U/L (41-126); BUN/Creat Ratio 13.44 Ratio (12.00-20.00); Blood Urea Nitrogen 12.1 mg/dL (9.0-27.0); Calcium 9.5 mg/dL (8.7-10.3); Carbon Dioxide 23.8 mmol/L (21.6-31.8); Chloride 103 mmol/L (96-109); Chol/HDL Ratio 5.81 Ratio; Globulin 2.3 g/dL (1.6-3.3); Glucose 96 mg/dL (70-110); LDL Cholesterol,Calculated 138.2 mg/dL (0.0-131.0); Potassium 4.3 mmol/L (3.5-5.5); Sodium 140 mmol/L (135-145); Total Bilirubin 0.5 mg/dL (0.3-1.2); Total Protein 6.7 g/dL (6.2-8.2)
== END | disposition home or self-care (01) ==
LOC: LABWHC1 11:00
PROVIDERS: ATTEND Internal Medicine
CPT/HCPCS: 36415; 80053; 80061; 84443; 85025; 86376

== ENCOUNTER 2024-10-10 05:58 | Day surgery (SDC) | payer OTHER ==
[2024-10-06 14:58] VITALS: BMI 31.8
[~2024-10-10 05:58] MED LIST changes: -LACTATED RINGERS 1,000 ML IV SCH; +LIDOCAINE 1% (10MG/ML) FOR IV START INTRADERMA PRN
[2024-10-10 06:31] VITALS: TEMP 97
[2024-10-10] MEDS: IV FLUID CONTINUATION 1,000 ML IV ONE (06:40)
[2024-10-10] MEDS: LACTATED RINGERS 1,000 ML IV SCH (06:44)
[2024-10-10] MEDS: LIDOCAINE 1% INJ 10MG/ML (20 ML MDV) INTRADERMA ONE (06:48)
[2024-10-10] MEDS ORDERED: PROPOFOL 10 MG/ML 20 ML VIAL IV ONE (07:00)
--- NOTE | 2024-10-10 07:24 | P.PCN ---
Date of Procedure: 10/10/24 Procedure(s) Performed: Brief history: Patient is a pleasant 58-year-old white female scheduled for an elective upper endoscopy as well as colonoscopy as a part of evaluation of GERD/intermittent dysphagia to solids and altered bowel movements for the last several years duration Procedure performed: Esophagogastroduodenoscopy biopsy Colonoscopy with biopsy Preoperative diagnosis: GERD/intermittent dysphagia to solids Change in bowel habits Anesthesia: MAC Procedure: After informed consent was obtained from the patient was brought into the endoscopy unit and IV sedation was administered by anesthesia under continuous monitoring. Initially upper endoscopy was done. The Olympus GF 160 video end oscope was inserted inserted into the mouth and esophagus intubated without any difficulty and was gradually advanced into the stomach and duodenum and carefully examined. The bulb and second part of the duodenum appeared normal. Biopsies were done from the duodenum rule out celiac disease. The scope was then withdrawn into the stomach adequately insufflated with air and upon careful examination the antrum had mild gastritis and biopsies were done from this area. Mucosa of the d body, cardia and fundus appeared normal. The scope was then withdrawn into the esophagus. Hiatal hernia noted. The GE junction was located at 40 cm to the incisors. It appeared regular with no erythema erosions or ulcerations. Rest of the esophagus appeared normal. No evidence of esophageal stricture. Biopsies were done from the distal esophagus. Patient tolerated the procedure well. At this time the patient continued to remain sedation. Initial digital rectal examination was normal. Olympus CF 160 video colonoscope was then inserted into the rectum and gradually advanced to the cecum without any difficulty. Careful examination was performed as the scope was gradually being withdrawn. The prep was excellent. Ileum was intubated and 20 cm visualized and appeared normal. The cecum, ascending colon, transverse colon, descending colon, sigmoid colon and rectum appeared normal. These were done from the ascending and descending colon to rule out microscopic/collagenous colitis retroflexion was performed in the rectum and no lesions were noted. Patient tolerated the procedure well. Impression: 1. Upper endoscopy revealed mild antral gastritis and small hiatal hernia but no evidence of esophagitis or esophageal stricture 2. Colonoscopy was within normal limits with no evidence of colorectal neoplasia Recommendations: Findings of this examination were discussed with the patient as well as her family. She was advised to follow-up with the biopsy results. She will be seen in the office in 2 weeks. Recommend repeat screening colonoscopy in 10 years.
[2024-10-10 07:45] VITALS: BP 133/81; PULSE 67
== END 2024-10-10 08:15 | disposition home or self-care (01) ==
LOC: ORWHC2ENDO 05:58
PROVIDERS: ATTEND Internal Medicine Gastroenterology
DX: R19.4 Change in bowel habit (principal); K29.50 Unspecified chronic gastritis without bleeding; K21.00 Gastro-esophageal reflux disease with esophagitis, without bleeding; K44.9 Diaphragmatic hernia without obstruction or gangrene; I10 Essential (primary) hypertension; D83.9 Common variable immunodeficiency, unspecified; M06.9 Rheumatoid arthritis, unspecified; Q61.5 Medullary cystic kidney; J45.909 Unspecified asthma, uncomplicated; G62.9 Polyneuropathy, unspecified; M19.90 Unspecified osteoarthritis, unspecified site; Z91.89 Other specified personal risk factors, not elsewhere classified; Z79.891 Long term (current) use of opiate analgesic; Z79.84 Long term (current) use of oral hypoglycemic drugs; Z79.899 Other long term (current) drug therapy; Z88.1 Allergy status to other antibiotic agents; Z88.8 Allergy status to other drugs, medicaments and biological substances; Z91.048 Other nonmedicinal substance allergy status
CPT/HCPCS: 45380; 43239; J2003; J2704; 88305

== ENCOUNTER → 2024-11-09 | Outpatient (CLI) | payer OTHER ==
--- NOTE | 2024-11-09 11:57 | MM ---
Reason for Exam: Clinical finding. Last mammogram was performed 1 year(s) and 4 month(s) ago. Patient History: Menarche at age 14. First Full-Term at age 32. Late child-bearing (after 32). Postmenopausal. Hormonal Contraceptives for 8 years from age 31 until age 39. Bilateral Reduction. 1994, Reduction on the Right side. 1994, Reduction on the Left side. Maternal grandmother had breast cancer, age 60. Risk Values: Annamaria 5 year model risk: 1.7%. NCI Lifetime model risk: 10.9%. Tissue Density: There are scattered areas of fibroglandular density. Findings: Analyzed By CAD. Postsurgical changes No finding to correlate with patient's pain. Postsurgical changes with scarring compatible with breast reduction. No finding to correlate with patient's pain. There is fibroglandular tissue which is more focal. Change morphology of these is thought to be due to surgical change. Overall Assessment: Incomplete: need additional imaging evaluation, BI-RAD 0 Management: Diagnostic Breast Ultrasound of both breasts. Results were given to the patient verbally at the time of exam. Patient should continue monthly self-breast exams. A clinical breast exam by your physician is recommended on an annual basis. This exam should not preclude additional follow-up of suspicious palpable abnormalities. Note on Annamaria scores and lifetime risk: 1. A Annamaria score greater than 3% is considered moderate risk. If this is the case, consider specialist referral to assess eligibility for a risk reducing agent. 2. If overall lifetime risk for the development of breast cancer is 20% or higher, the patient may qualify for future screening with alternating mammogram and breast MRI. [facility], , 11/09/2024 11:55 AM. Electronically signed and approved by: Yomi Lion DO
--- NOTE | 2024-11-09 12:38 | USB ---
Reason for Exam: Clinical finding. Patient History: Menarche at age 14. First Full-Term at age 32. Late child-bearing (after 32). Postmenopausal. Hormonal Contraceptives for 8 years from age 31 until age 39. Bilateral Reduction. 1994, Reduction on the Right side. 1994, Reduction on the Left side. Maternal grandmother had breast cancer, age 60. Risk Values: Annamaria 5 year model risk: 1.7%. NCI Lifetime model risk: 10.9%. Technique: Method: Targeted. Prior Study Comparison: 03/25/2022 Bilateral MG screening mammo w CAD, [facility]. 06/15/2023 Bilateral MG screening mammo w CAD, [facility]. 06/18/2023 Left MG 3D work up w/cad , [facility]. Findings: The whole breast of the left breast, the lateral section of the breast of the right breast, the lower outer quadrant of the right breast, the lower section of the breast of the right breast, the axilla of the left breast and the retroareolar of the left breast were scanned. Technique utilized:US breast limited BILAT Image; ultrasound imaging lower half of the right breast and left whole breast. Retroareolar and axillary imaging was performed bilaterally.- Multiple abnormalities are seen throughout the breasts, these are felt to represent likely post surgical changes. Given many findings throughout the breasts 6 month follow-up mammography is recommended no significant change from this mammography exam in 6 months consider continuing routine screening.Technique utilized:US breast limited BILAT Image; ultrasound imaging lower half of the right breast and left whole breast. Retroareolar and axillary imaging was performed bilaterally.- Multiple abnormalities are seen throughout the breasts, these are felt to represent likely post surgical changes. Given many findings throughout the breasts 6 month follow-up mammography is recommended as there is been no other imaging since most recent surgery. Overall Assessment: Probably benign, BI-RAD 3 Management: Diagnostic Mammogram of both breasts in 6 months. A clinical breast exam by your physician is recommended on an annual basis and results should be correlated with mammographic findings. This exam should not preclude additional follow-up of suspicious palpable abnormalities. Results were given to the patient verbally at the time of exam. [facility], , 11/09/2024 12:35 PM. Electronically signed and approved by: Yomi Lion DO
== END | disposition home or self-care (01) ==
LOC: RADMAMWWP 11:23
PROVIDERS: ATTEND Family Medicine
DX: R92.2 Inconclusive mammogram (principal); R92.323 Mammographic fibroglandular density, bilateral breasts; Z78.0 Asymptomatic menopausal state; Z80.3 Family history of malignant neoplasm of breast
CPT/HCPCS: 77062; 77066

== ENCOUNTER → 2025-02-22 | Outpatient (CLI) | payer OTHER ==
--- NOTE | 2025-02-23 18:48 | MR ---
INDICATION: Patient age:Female; 59 years old; Reason for study: R20.0 ANESTHESIA OF SKIN R20.2 PARESTHESIA OF SKIN; [facility]. COMPARISON: MR cervical spine 08/23/2023, 02/14/2022, MR C-spine/L-spine 08/28/2016. TECHNIQUE: Multi planar, multi sequence imaging was performed of the cervical spine before and after the uneventful administration of 8 mL of Gadobutrol intravenously. FINDINGS: Alignment: The cervical vertebral bodies have preserved heights. Alignment is within normal limits gi ori patient positioning. Bones: Bone signal is within normal limits. Multilevel anterior osteophytosis of the lower cervical spine. Cord: The spinal cord is unremarkable with regards to their signal intensity and morphology. No abnor mal contrast enhancement. Discs: Multilevel disc desiccation is present. C2-C3: No significant disc pathology. The spinal canal is patent. No neural foraminal stenosis. C3-C4: No significant disc pathology. The spinal canal is patent. Uncovertebral joint hypertrophy. Ri ght neural foramen is patent. Moderate left neural foraminal stenosis. C4-C5: No significant disc pathology. The spinal canal is patent. No neural foraminal stenosis. C5-C6: Broad-based disc bulge with effacement of the anterior thecal sac and abutment of the ventral thecal sac. Consistent with moderate central canal stenosis. Uncovertebral joint hypertrophy. Moderat e to severe bilateral neural foraminal stenosis. C6-C7: No significant disc pathology. The spinal canal is patent. Uncovertebral joint hypertrophy. Ri ght neural foramen is patent. Mild left neural foraminal stenosis. C7-T1: No significant disc pathology. The spinal canal is patent. No neural foraminal stenosis. Other: None. IMPRESSION: Overall similar examination from prior MRI with multilevel degenerative disc disease and uncovertebra l joint hypertrophy. Most pronounced at C5-C6 with disc bulge resulting in moderate central canal tom nosis. Uncovertebral joint hypertrophy resulting in varying degrees of neural foraminal stenosis as d escribed above. [facility], , 02/23/2025 6:46 PM
== END | disposition home or self-care (01) ==
LOC: RADMRIMAIN 14:40
PROVIDERS: ATTEND Psychiatry & Neurology Neurology
DX: M50.322 Other cervical disc degeneration at C5-C6 level (principal); M48.02 Spinal stenosis, cervical region; R20.0 Anesthesia of skin; R20.2 Paresthesia of skin; M99.71 Connective tissue and disc stenosis of intervertebral foramina of cervical region
CPT/HCPCS: 72156; A9585

== ENCOUNTER → 2025-03-01 | Outpatient (CLI) | payer OTHER ==
--- NOTE | 2025-03-01 13:14 | MR ---
EXAMINATION TYPE: MR thoracic spine wo/w con DATE OF EXAM: 03/01/2025 12:23 PM COMPARISON: None. CLINICAL INDICATION: Female, 59 years old with history of R20.0 ANESTHESIA OF SKIN R20.2 PARESTHESIA OF SKIN, f/u ongoing numbness and pressure, and feeling of hard area over thoracic spine (more on lef t) from liposuction 2-2023, TECHNIQUE: Multiplanar, multisequence images of the thoracic spine were obtained before and after adm inistration of 8.5ml mL intravenous Gadobutrol gadolinium contrast. IV Contrast: 8.5ml cc Gadobutrol (None if empty) FINDINGS: Vertebral body heights are preserved and alignment is maintained. Slight accentuated mid thoracic kyp hosis. Mild degenerative disc disease upper and mid thoracic spine with desiccated disks and minimal disc bu lging. No large focal disc herniation or significant spinal canal stenosis is seen. Mild facet arthropathy upper cervical spine. No significant neuroforaminal stenosis seen. Normal course and caliber of the thoracic spinal cord. Questionable 2 cm span of subtle increased sig nal within the thoracic spinal cord opposite T10 and T11 without convincing correlate on axial images . Findings would favor artifact. No abnormal enhancement within the spinal canal. No prevertebral or paravertebral soft tissue abnormality. IMPRESSION: 1. Questionable 2 cm span of increased cord signal opposite T10 and T11. No correlate on the axial se carlos. Findings favored to be artifactual. Clinically correlate to exclude the possibility of any unde rlying demyelinating disease. Precautionary follow-up such as in 3-6 months can be considered. 2. Mild degenerative disc disease upper and mid thoracic spine with scattered mild facet arthropathy. 3. No focal disc herniation or significant spinal canal stenosis. No significant neural foraminal tom nosis. 4. No vertebral compression collapse or malalignment. [facility], , 03/01/2025 1:12 PM
== END | disposition home or self-care (01) ==
LOC: RADMRIMAIN 11:01
PROVIDERS: ATTEND Psychiatry & Neurology Neurology
DX: M51.34 Other intervertebral disc degeneration, thoracic region (principal); M47.814 Spondylosis without myelopathy or radiculopathy, thoracic region
CPT/HCPCS: 72157; A9585

== ENCOUNTER → 2025-05-02 | Outpatient (CLI) | payer OTHER ==
--- NOTE | 2025-05-03 12:49 | BD ---
EXAMINATION TYPE: Axial Bone Density DATE OF EXAM: 05/02/2025 CLINICAL HISTORY: 59 years old Female. ICD-10 CODE: Z79.52 BIOLOGY SPECIALIST (CURRENT) USE OF SYSTEMIC STERO ID , Additional History: Height: 62.5 in Weight: 177 lbs FRAX RISK QUESTIONS: 5. Chronic liver disease: fatty liver Rheumatoid Arthritis: yes HISTORY OF: Surgery to Wrist (right/left): [facility] wrist surgeries EXAM MEASUREMENTS: Bone mineral densitometry was performed using the [employer] System. Bone mineral density as measured about the Lumbar spine is: ----- L1-L4(G/cm2): 1.175 T Score Values are as follows: ----- L1: 0.0 ----- L2: -0.3 ----- L3: -0.2 ----- L4: 0.1 ----- L1-L4: 0.0 Z Score Values are as follows: ----- L1: 0.5 ----- L2: 0.2 ----- L3: 0.3 ----- L4: 0.6 ----- L1-L4: 0.4 Bone mineral density baseline Bone mineral density about the R hip (g/cm2): 0.815 Bone mineral density about the L hip (g/cm2): 0.885 T Score values are as follows: -----R Neck: -1.4 -----L Neck: -0.8 -----R Total: -1.5 -----L Total: -1.0 Z Score values are as follows: -----R Neck: -0.6 -----L Neck: -0.1 -----R Total: -1.1 -----L Total: -0.6 Bone mineral density baseline FRAX%s: The graph provided illustrates a 8.9% chance for a major osteoporotic fx and a 0.7% chance fo r the hips probability for fx in 10 years time. IMPRESSION: Osteopenia (T Score between -2.5 and -1). There is slightly increased risk of fracture and the patient may be considered for treatment. Re-Screen 2-5 years. NOTE: T-SCORE=SD OF THE YOUNG ADULT MEAN. [facility], , 05/03/2025 12:47 PM
== END | disposition home or self-care (01) ==
LOC: RADBDWWP 12:25
PROVIDERS: ATTEND Family Medicine
DX: M85.89 Other specified disorders of bone density and structure, multiple sites (principal); Z79.52 Long term (current) use of systemic steroids
CPT/HCPCS: 77080

== ENCOUNTER → 2025-05-02 | Outpatient (CLI) | payer OTHER ==
--- NOTE | 2025-05-02 16:22 | MM ---
Reason for Exam: Clinical finding. Last screening mammogram was performed 6 month(s) ago. Patient History: Menarche at age 14. First Full-Term at age 32. Late child-bearing (after 32). Postmenopausal. Hormonal Contraceptives for 8 years from age 31 until age 39. 2023, Bilateral Reduction. Bilateral Reduction. 1994, Reduction on the Right side. 1994, Reduction on the Left side. Maternal grandmother had breast cancer, age 60. Risk Values: Annamaria 5 year model risk: 1.8%. NCI Lifetime model risk: 10.7%. Tissue Density: There are scattered areas of fibroglandular density. Findings: Analyzed By CAD. Bilateral post reduction changes seen. Palpable abnormalities in the right breast inner lower and medial aspect density multiple renal cysts with few punctate calcifications. Fibroglandular tissue within the right breast is similar to prior no new or enlarging masses. Breast palpable abnormality correlates with the inferior medial lesion with multiple oil cysts present. These are grossly stable to prior exam. Stable fibroglandular tissue versus post surgical changes in the upper aspect of the left breast. No new suspicious masses, calcifications or distortions. Overall Assessment: Incomplete: need additional imaging evaluation, BI-RAD 0 Management: Diagnostic Breast Ultrasound of both breasts. Results were given to the patient verbally at the time of exam. Patient should continue monthly self-breast exams. A clinical breast exam by your physician is recommended on an annual basis. This exam should not preclude additional follow-up of suspicious palpable abnormalities. Note on Annamaria scores and lifetime risk: 1. A Annamaria score greater than 3% is considered moderate risk. If this is the case, consider specialist referral to assess eligibility for a risk reducing agent. 2. If overall lifetime risk for the development of breast cancer is 20% or higher, the patient may qualify for future screening with alternating mammogram and breast MRI. [facility], , 05/02/2025 4:19 PM. Electronically signed and approved by: Yomi Lion DO
--- NOTE | 2025-05-02 16:23 | USB ---
Reason for Exam: Clinical finding. Patient History: Menarche at age 14. First Full-Term at age 32. Late child-bearing (after 32). Postmenopausal. Hormonal Contraceptives for 8 years from age 31 until age 39. 2023, Bilateral Reduction. Bilateral Reduction. 1994, Reduction on the Right side. 1994, Reduction on the Left side. Maternal grandmother had breast cancer, age 60. Risk Values: Annamaria 5 year model risk: 1.8%. NCI Lifetime model risk: 10.7%. Technique: Method: Targeted. Doppler: Color. Patient Position: Supine. Prior Study Comparison: 06/15/2023 Bilateral MG screening mammo w CAD, [facility]. 06/18/2023 Left MG 3D work up w/cad LT, [facility]. 11/09/2024 Bilateral MG 3D diag mammo w/cad [facility], [facility]. Findings: The area of palpable concern of both breasts, the axilla of both breasts and the retroareolar of both breasts were scanned. Technique utilized:US breast limited BILAT Image; Ultrasound imaging of: Areas of concern of palpable abnormality. Bilateral axilla and bilateral nipple Right breast: * Palpable abnormality 1: Right breast 3:00 1 cm from the nipple correlates with probable resolving hematoma 6 mm from the skin surface measuring up to 7 mm. Lesion is not definitively visualized on prior exam likely due to the areas interrogated on prior exam on 11/09/2024. * Palpable abnormality 2: Right breast 6:00 5 cm from nipple has decreased in size, previously 34 x 7 mm now measuring 30 x 5 mm. Adjacent probable small hematoma/fat necrosis measuring 3 x 1 mm previously 4 x 6 mm.. Findings in this region on mammography correlate with multiple oil cysts/fat necrosis. * Adjacent to Palpable abnormality 2 right breast 5:00 3 cm from the nipple demonstrates a more deep hypoechoic lesion image 16 of 38. This is also not in the [id number] on prior exam on 11/09/2024. Finding also is favored represent fat necrosis and/or hematoma. Left breast: * Palpable abnormality 1: left breast 7:00 6 cm in the nipple measuring 3.0 x 1.5 cm, previously similar at 3.0 x 1.3 cm this has somewhat of any elongated morphology. This is an area of multiple luteal cyst/fat necrosis seen on mammography.. Constellation of findings felt to represent post surgical changes within the bilateral breasts. Negative bilateral axillas. Overall Assessment: Benign, BI-RAD 2 Management: Screening Mammogram of both breasts in 6 months. A clinical breast exam by your physician is recommended on an annual basis and results should be correlated with mammographic findings. This exam should not preclude additional follow-up of suspicious palpable abnormalities. Results were given to the patient verbally at the time of exam. [facility], , 05/02/2025 4:19 PM A clinical breast exam by your physician is recommended on an annual basis and results should be correlated with mammographic findings. This exam should not preclude additional follow-up of suspicious palpable abnormalities. Results were given to the patient verbally at the time of exam. [facility], , 05/02/2025 4:20 PM. Electronically signed and approved by: Yomi Lion DO
== END | disposition home or self-care (01) ==
LOC: RADMAMWWP 14:48
PROVIDERS: ATTEND Family Medicine
DX: R92.8 Other abnormal and inconclusive findings on diagnostic imaging of breast (principal); N64.4 Mastodynia; N63.20 Unspecified lump in the left breast, unspecified quadrant; Z78.0 Asymptomatic menopausal state; Z80.3 Family history of malignant neoplasm of breast
CPT/HCPCS: 77062; 77066